=== PATIENT | female | born 1950 | race Asian ===

== ENCOUNTER 2020-04-10 11:22 | Inpatient (IN) | payer OTHER, MEDICAID ==
[~2020-04-10] VITALS: Ht 154.9 cm; Wt 52.6 kg
[2020-04-10 11:22] VITALS: BP_SYST 192
--- NOTE | 2020-04-10 11:22 | NUR ---
BROUGHT IN BY [facility], PLACED IN BED #6 AND TRIAGED. REPORT GIVEN TO MIGUEL ANGEL
--- NOTE | 2020-04-10 11:22 | NUR ---
Patient to ER bed 6 to gown for evaluation. Side rails up.
[2020-04-10] MEDS ORDERED: DOCU-144 PO (11:54)
[2020-04-10] MEDS ORDERED: ATEN-41 PO (11:54)
[2020-04-10] MEDS ORDERED: POLY17PO4 PO (11:54)
[2020-04-10] MEDS ORDERED: LEVE500T9 PO (11:54)
[2020-04-10] MEDS ORDERED: FERR-69 PO (11:54)
[2020-04-10] MEDS ORDERED: AMIO400T5 PO (11:54)
[2020-04-10] MEDS ORDERED: OMEP20CA11 PO (11:54)
--- NOTE | 2020-04-10 11:54 | NUR ---
Medication reconciliation completed with information provided by EMILE WORTHY. Any prior medication reconciliation on file was reviewed and corrected.
[2020-04-10 12:05] LABS: EOSINOPHILS # (AUTO) 0.1 K/uL (0.0-0.4); EOSINOPHILS % (AUTO) 0.9 % (0.0-4.0); HEMOGLOBIN 7.9 g/dL (12.0-16.0); LYMPHOCYTES # (AUTO) 2.1 K/uL (1.0-5.5)
[2020-04-10 12:12] LABS: BASOPHILS % (AUTO) 0.3 % (0.0-2.0); LYMPHOCYTES % (AUTO) 22.7 % (20.5-51.5); MEAN CORPUSCULAR HEMOGLOBIN 18 pg (27-31); MEAN CORPUSCULAR HGB CONC 31 % (32-36); MEAN CORPUSCULAR VOLUME 60 fL (79.0-98.0); MONOCYTES # (AUTO) 0.7 K/uL (0.0-1.0); MONOCYTES % (AUTO) 7.4 % (1.7-9.3); NEUTROPHILS # (AUTO) 6.3 K/uL (1.8-7.7); NEUTROPHILS % (AUTO) 68.7 % (40.0-70.0); PLATELET COUNT (AUTO) 321 K/uL (130-430); RED BLOOD CELL COUNT(AUTO) 4.32 MIL/uL (4.2-6.2); RED CELL DISTRIBUTION WIDTH 21.9 % (9.0-15.0); WHITE BLOOD COUNT (AUTO) 9.1 K/uL (4.8-10.8)
[2020-04-10 12:25] LABS: ALBUMIN 2.7 g/dL (3.4-4.8); CALCIUM 8.3 mg/dL (8.4-11.0); CREATININE 0.27 mg/dL (0.55-1.30); POTASSIUM 3.5 mmol/L (3.5-5.1); TOTAL BILIRUBIN 0.5 mg/dL (0.0-1.0)
[2020-04-10] MEDS ORDERED: hydrALAZINE HCL 20 MG/ML VIAL IVP ONE (12:30)
--- NOTE | 2020-04-10 12:41 | NUR ---
5mg of hydralazine IVP given at this time, per Dr Amaya only give 5 mg and monitoring the BP if BP still elevated give 5 mg more. primary nurse notified.
[2020-04-10 12:45] LABS: PROTHROMBIN TIME 10.2 SECS (9.5-12.5)
[2020-04-10] MEDS ORDERED: MAGNESIUM SULFATE 50 ML IV ONE (13:00)
--- NOTE | 2020-04-10 13:38 | NUR ---
Admit orders received from Dr. March.
--- NOTE | 2020-04-10 13:40 | NUR ---
Pt belongings list completed.
--- NOTE | 2020-04-10 13:40 | NUR ---
Called for tele bed. Unable to speak w/ CN for a bed assignment
--- NOTE | 2020-04-10 13:43 | NUR ---
Medication reconciliation completed with information provided by pt's medical record. Any prior medication reconciliation on file was reviewed and corrected.
[2020-04-10] MEDS ORDERED: ZOLPIDEM TARTRATE 5 MG TABLET PO PRN (14:15)
[2020-04-10] MEDS ORDERED: ACETAMINOPHEN 325 MG TABLET PO PRN (14:15)
[2020-04-10] MEDS ORDERED: MORPHINE SULFATE 10 MG/ML VIAL IVP PRN ×2 (14:15)
[2020-04-10] MEDS ORDERED: cloNIDine HCL 0.1 MG TABLET PO PRN (14:15)
[2020-04-10] MEDS ORDERED: MUPIROCIN 2% TOPICAL OINTMENT 22 GM NS PRN (14:15)
[2020-04-10] MEDS ORDERED: MAGNESIUM SULFATE 50 ML IV PRN (14:15)
[2020-04-10] MEDS ORDERED: POTASSIUM CHLORIDE 20 MEQ TAB.PRT.SR PO PRN (14:15)
[2020-04-10] MEDS ORDERED: ONDANSETRON HCL 4 MG/2 ML VIAL IVP PRN (14:15)
[2020-04-10] MEDS ORDERED: LORazepam 2 MG/ML VIAL IVP PRN (14:15)
[2020-04-10] MEDS ORDERED: DOCUSATE SODIUM 100 MG CAPSULE PO PRN (14:15)
--- NOTE | 2020-04-10 14:29 | NUR ---
called for a tele bed, second time. Unable to speak w/ Shana CN
--- NOTE | 2020-04-10 14:37 | NUR ---
Patient will be admitted to care of tele. Admitted to tele unit. Will go to room 107-b. Belongings list completed. Complete and up to date summary report printed. SBAR report to be given at bedside with opportunity for questions. Bedside report to be given
--- NOTE | 2020-04-10 15:07 | NUR ---
Admission Note Received patient from ER with diagnosis of Oriented to room, call light, pain management and safety.
--- NOTE | 2020-04-10 15:40 | NUR ---
CONSULTATION PAGED REASON FOR CONSULTATION:A-FIB AND QT PROLONGATION WAS CONSULT CALLED? PERSON WHO WAS NOTIFIED:REFUGIO CONSULTING PHYSICIAN:PEDRO BOSWELL VISUAL COORDINATOR SPECIALTY:CARDIO VISUAL COORDINATOR PHONE NUMBER:[phone] RE[facility]ING PHYSICIAN[facility]
[2020-04-10 15:44] VITALS: BP_SYST 155
[2020-04-10 15:56] VITALS: BP_SYST 155
--- NOTE | 2020-04-10 16:00 | NUR ---
Notes- Received pt in bed, awake non verbal. on room air tolerating well. afebrile. Sinus rythm on the monitor. has wound on the sacral area, picture taken. Bed alarm on. will monitor.
--- NOTE | 2020-04-10 16:18 | NUR ---
spoke to daughter and give updates.
--- NOTE | 2020-04-10 18:13 | NUR ---
Notes- In bed, awake. no acute distress noted. has incontinent of urine. change and repositioned.
[2020-04-10 19:24] LABS: TOTAL IRON BIND. CAPACITY 152 ug/dL (250-450)
--- NOTE | 2020-04-10 20:00 | NUR ---
Received in bed. Non-verbal. Presents in no distress. Incontinent of yellow urine. Cleaned and dry and protective measure maintain for comfort. Sacral dressing changed and intact. Will continue to monitor during shift.
[2020-04-10] MEDS: levETIRAcetam 500 MG TABLET PO SCH (21:27)
[2020-04-11] VITALS (8 sets, daily range): BP systolic 113–148
[2020-04-11 06:10] LABS: BASOPHILS % (AUTO) 0.3 % (0.0-2.0); EOSINOPHILS # (AUTO) 0.1 K/uL (0.0-0.4); EOSINOPHILS % (AUTO) 0.8 % (0.0-4.0); HEMATOCRIT 24.5 % (36-48); HEMOGLOBIN 7.6 g/dL (12.0-16.0); LYMPHOCYTES # (AUTO) 1.3 K/uL (1.0-5.5); LYMPHOCYTES % (AUTO) 16.6 % (20.5-51.5); MEAN CORPUSCULAR HEMOGLOBIN 19 pg (27-31); MEAN CORPUSCULAR HGB CONC 31 % (32-36); MEAN CORPUSCULAR VOLUME 60 fL (79.0-98.0); MONOCYTES # (AUTO) 0.7 K/uL (0.0-1.0); MONOCYTES % (AUTO) 8.8 % (1.7-9.3); NEUTROPHILS # (AUTO) 5.8 K/uL (1.8-7.7); NEUTROPHILS % (AUTO) 73.5 % (40.0-70.0); PLATELET COUNT (AUTO) 293 K/uL (130-430); RED BLOOD CELL COUNT(AUTO) 4.06 MIL/uL (4.2-6.2); WHITE BLOOD COUNT (AUTO) 7.9 K/uL (4.8-10.8)
[2020-04-11 06:21] LABS: CALCIUM 8.3 mg/dL (8.4-11.0); CREATININE 0.31 mg/dL (0.55-1.30); POTASSIUM 3.6 mmol/L (3.5-5.1)
--- NOTE | 2020-04-11 07:35 | NUR ---
OPENING NOTE Patient resting in the bed. No acute distress. Skin warm and dry to touch. SL intact to LAC, no redness, no swelling, patent. Safety measure maintained. Call light within reached. Bed locked in low position, side rails up, bed alarm on. Will continue to monitor.
[2020-04-11] MEDS: DOCUSATE SODIUM 100 MG CAPSULE PO SCH (09:48)
[2020-04-11] MEDS: ATENOLOL 25 MG TABLET(TENORMIN) PO SCH (09:49)
[2020-04-11] MEDS: AMIODARONE HCL 200 MG TABLET PO SCH (09:49)
[2020-04-11] MEDS: levETIRAcetam 500 MG TABLET PO SCH ×2 (09:49→20:40)
--- NOTE | 2020-04-11 09:57 | NUR ---
AM SCHEDULE MED GIVEN, TOLERATED WELL.
--- NOTE | 2020-04-11 10:24 | NUR ---
Nutrition Update Lavelle Scale 14 noted. Pt admitted for blood transfusion. Diet: Puree BMI: 21.2 kg/m2 RD to follow per nutrition care standards.
[2020-04-11] MEDS ORDERED: SOD FERRIC GLUC COMPLEX/SUC 125 MG in NS 100 ML IV ONE (12:00)
--- NOTE | 2020-04-11 12:22 | NUR ---
TELEPHONE CONSENT FOR BLOOD TRANSFUSION OBTAINED BY THE PATIENT'S DAUGHTER ALBINA STOLL VIA PHONE.
--- NOTE | 2020-04-11 14:15 | NUR ---
MRSA OF NARES=POSITIVE Called and reported to Ailyn Barron for MRSA of nares=positive. Dr. Lieberman with order of Bactroban ointment BID x 5 days. Order read back and okay to
--- NOTE | 2020-04-11 15:07 | NUR ---
Case mgt: S/W Sho Kwon, pt's daughter, at [phone] on phone-she speaks Yemeni well and indicates pt was at [facility] after stroke last June 2019 and transferred to [facility] on 2018 and has been there since that date. Sho wants her mom to return to [facility] when she is ready for discharge. Sho said her mom speaks Cantonese, but sometimes has problems with speech, but is mostly alert-has paraplegia and is able to feed herself--I gave Sho our case mgt ph# and explained we will call her once pt is stable for dc back to [facility]--Sho in agreement to this plan.
--- NOTE | 2020-04-11 16:38 | NUR ---
BT INITIATION: Consent signed per Sho Kwon (daughter) agreeing to administration of blood. Blood has been type and crossmatched. Blood sent from blood bank. Information on unit of blood checked against patient wristband at bedside by two nurses. All information matches. Patient or responsible alliance party informed of potential complications associated with blood transfusion. Informed of possible transfusion reaction symptoms. Aware of need to notify nurse at once of itching, shortness of breath, flushing, feeling of impending doom, or other symptoms not previously present. Vital signs taken within 5 minutes prior to initiation of transfusion. RN will remain with patient for first 15 minutes of transfusion at which time vital signs will be re-assessed.
--- NOTE | 2020-04-11 16:53 | NUR ---
15 MIN AFTER BLOOD TRANSFUSED Patient resting in the bed. No acute distress. Skin warm and dry to touch. No skin rash/itching noted. VS: T=97.3, P=78, R=18, ZW=993/80, O2 sat=95% RA. Safety measure maintained. Call light within reached. Bed locked in low position, side rails up, bed alarm on. Continue to monitor.
--- NOTE | 2020-04-11 17:05 | NUR ---
IV RE-INSERTION: Noted small leakage on the IV site. Restarted on left hand. Successful after 2 attempts. Resumed blood transfusion and regulated at 120ml/hr. Will monitor the S/S of infiltration.
--- NOTE | 2020-04-11 18:00 | NUR ---
ROUND Patient resting in the bed. No acute distress. IV intact to left hand, no redness, no swelling, no drainage, continue on blood transfusion, infusing well. No skin rash noted. Safety measure maintained. Call light within reached. Bed locked in low position, side rails up, bed alarm on. Continue to monitor.
--- NOTE | 2020-04-11 19:10 | NUR ---
BLOOD TRANSFUSED COMPLETED/CLOSING NOTE Patient resting in the bed. No acute distress. VS: T=97.4, P=77, R=18, RD=012/90, O2 sat=95%RA. No skin rash/itching noted. IV intact, no redness, no swelling, patent. Safety measure maintained. Call light within reached. Bed locked in low position, side rails up, bed alarm on. On contact isolation. All needs met. No seizure activity noted. Will endorse to night nurse.
--- NOTE | 2020-04-11 19:30 | NUR ---
Opening Notes patient is resting in bed. No signs of distress noted, breathing is even and unlabored. Patient is on room air and tolerating well. 20G to left hand is saline locked at this time. No other needs. Bed is locked in the lowest position with call light within reach. Side rails up X3. Bed alarm is on.
[2020-04-11] MEDS: MUPIROCIN 2% TOPICAL OINTMENT 22 GM NS SCH (20:40)
--- NOTE | 2020-04-11 20:40 | NUR ---
Medications Administered scheduled medications crushed in apple sauce. Patient tolerated well. Educated patient on action and side effects. Cleaned and repositioned patient at this time, dressing to sacrum is clean, dry and intact. No other needs at this time. Bed is locked in the lowest position with call light within reach. Side rails up X3. Bed alarm is on.
--- NOTE | 2020-04-11 22:47 | NUR ---
RN Rounds Patient is resting in bed with eyes closed. No signs of distress noted. breathing is even and unlabored. Repositioned patient at this time, Patient tolerated well. Bed is locked in the lowest position with call light within reach. Side rails up X3. Bed alarm is on.
--- NOTE | 2020-04-12 00:47 | NUR ---
RN Rounds Patient is resting in bed with eyes closed. No signs of distress noted. breathing is even and unlabored. Repositioned and cleaned patient at this time, Patient tolerated well. Bed is locked in the lowest position with call light within reach. Side rails up X3. Bed alarm is on.
[2020-04-12 01:11] VITALS: BP_SYST 153
[2020-04-12 06:37] LABS: BASOPHILS % (AUTO) 0.3 % (0.0-2.0); EOSINOPHILS % (AUTO) 0.3 % (0.0-4.0); HEMATOCRIT 28.3 % (36-48); HEMOGLOBIN 8.9 g/dL (12.0-16.0); LYMPHOCYTES # (AUTO) 1.3 K/uL (1.0-5.5); LYMPHOCYTES % (AUTO) 14.3 % (20.5-51.5); MEAN CORPUSCULAR HEMOGLOBIN 20 pg (27-31); MEAN CORPUSCULAR HGB CONC 32 % (32-36); MEAN CORPUSCULAR VOLUME 63 fL (79.0-98.0); MONOCYTES # (AUTO) 0.8 K/uL (0.0-1.0); MONOCYTES % (AUTO) 9.1 % (1.7-9.3); PLATELET COUNT (AUTO) 278 K/uL (130-430); RED BLOOD CELL COUNT(AUTO) 4.51 MIL/uL (4.2-6.2); WHITE BLOOD COUNT (AUTO) 9.2 K/uL (4.8-10.8)
[2020-04-12 06:40] LABS: CALCIUM 8.2 mg/dL (8.4-11.0); CREATININE 0.35 mg/dL (0.55-1.30); POTASSIUM 3.8 mmol/L (3.5-5.1)
--- NOTE | 2020-04-12 07:28 | NUR ---
OPENING NOTE Patient resting in the bed. No acute distress. Skin warm and dry to touch. SL intact to left hand, no redness, no swelling, patent. On contact isolation. Safety measure maintained. Call light within reached. Bed locked in low position, side rails up, bed alarm on. Will continue to monitor.
--- NOTE | 2020-04-12 07:36 | NUR ---
Closing Notes patient is resting in bed. No signs of distress noted, breathing is even and unlabored. Patient is on room air and tolerating well. 20G to left hand is saline locked at this time. All needs were met throughout shift. Bed is locked in the lowest position with call light within reach. Side rails up X3. Bed alarm is on. Will endorse care to dayshift RN
[2020-04-12 08:12] VITALS: BP_SYST 144
[2020-04-12] MEDS: levETIRAcetam 500 MG TABLET PO SCH ×2 (09:49→21:34)
[2020-04-12] MEDS: DOCUSATE SODIUM 100 MG CAPSULE PO SCH (09:49)
[2020-04-12] MEDS: ATENOLOL 25 MG TABLET(TENORMIN) PO SCH (09:50)
[2020-04-12] MEDS: AMIODARONE HCL 200 MG TABLET PO SCH (09:51)
--- NOTE | 2020-04-12 09:52 | NUR ---
AM SCHEDULE MED GIVEN, TOLERATED WELL.
[2020-04-12] MEDS: MUPIROCIN 2% TOPICAL OINTMENT 22 GM NS SCH ×2 (09:56→21:34)
--- NOTE | 2020-04-12 11:02 | NUR ---
ROUND Patient resting in the bed with eye closed. No acute distress. Safety measure maintained. Call light within reached. Bed locked in low position, side rails up, bed alarm on. Contact isolation maintained. Continue to monitor.
[2020-04-12 12:40] VITALS: BP_SYST 118
--- NOTE | 2020-04-12 12:45 | NUR ---
DEZ LEON Seen and examined by Dr. Lieberman. Reported to Dr. Lieberman, the urine of the patient cloudy with smell. Dr. Lieberman with the order of UA. Told Dr. Lieberman, the patient's daughter Cher Berkowitz wanted to talk to her, phone .
--- NOTE | 2020-04-12 14:07 | NUR ---
URINE SPECIMEN SENT TO LAB Urine sample obtained via straight cath, sterile technique performed. Patient tolerated procedure well. No s/s of pain. Safety measure maintained. Call light within reached. Bed locked in low position, side rails up, bed alarm on. Contact isolation maintained. Continue to monitor.
[2020-04-12 14:15] LABS: BILIRUBIN,URINE NEGATIVE (NEGATIVE); BLOOD, URINE 2+ (NEGATIVE); CLARITY/URINE CLOUDY (CLEAR); COLOR,URINE YELLOW (YELLOW); GLUCOSE,URINE NEGATIVE (NEGATIVE); KETONES,URINE NEGATIVE (NEGATIVE); LEUKOCYTE ESTERASE ,URINE 3+ (NEGATIVE); NITRITE, URINE NEGATIVE (NEGATIVE); PROTEIN URINE NEGATIVE (NEGATIVE)
[2020-04-12 14:41] LABS: BACTERIA,URINE MANY /HPF (None Seen); RBC,URINE 0-3 /HPF (0-3); WBC,URINE 50-80 /HPF (0-3)
[2020-04-12 14:42] LABS: MUCUS,URINE None Seen /LPF (None Seen); URINE AMORPHOUS PHOSPHATES 2+ /HPF (None Seen)
--- NOTE | 2020-04-12 15:25 | NUR ---
LEFT LEG DVT POSITIVE Called and reported to Ailyn Barron for left leg DVT positive. Per Dr. Lieberman she will check the result from the computer and will order something.
[2020-04-12] MEDS ORDERED: RIVAROXABAN 15 MG TABLET PO ONE (16:00)
[2020-04-12 16:08] VITALS: BP_SYST 126
--- NOTE | 2020-04-12 16:36 | NUR ---
UA POSITIVE Called and reported to Ailyn Barron, UA positive result and the patient not on any antibiotic, C & S is pending. Dr. Lieberman stated "I will check for it. I cancelled Xarelto due to the patient cannot take anticoagulant". Told Dr. Lieberman I already gave the initial dose. Dr. Lieberman stated "That's fine".
[2020-04-12] MEDS: cefTRIAXone 1 GM in D5W 50 ML IV SCH (17:10)
--- NOTE | 2020-04-12 17:20 | NUR ---
CONSULTATION PAGED REASON FOR CONSULTATION:LEFT LEG DVT, UNABLE TO ANTICOAGULATE WAS CONSULT CALLED?Y PERSON WHO WAS NOTIFIED:KONSTANTIN CONSULTING PHYSICIAN:VENKATA WARD CUT TO LENGTH OPERATOR SPECIALTY:SURGEON CUT TO LENGTH OPERATOR PHONE NUMBER:[phone] REQUESTING PHYSICIAN:DEZ BEYER
--- NOTE | 2020-04-12 18:37 | NUR ---
CLOSING NOTE Patient resting in the bed. No acute distress. Skin warm and dry to touch. SL intact to left hand, no redness, no swelling, patent. All needs met. No seizure activity noted during shift. Continue isolation maintained. Call light within reached. Bed locked in low position, padded side rails up, bed alarm on. Will endorse to night nurse.
[2020-04-12 20:00] VITALS: BP_SYST 129
[2020-04-12 23:00] VITALS: BP_SYST 170
[2020-04-13] VITALS: BP_SYST 170
[2020-04-13 05:26] LABS: LYMPHOCYTES # (AUTO) 1.2 K/uL (1.0-5.5)
[2020-04-13 05:30] LABS: CALCIUM 8.4 mg/dL (8.4-11.0); CREATININE 0.32 mg/dL (0.55-1.30); POTASSIUM 3.8 mmol/L (3.5-5.1)
[2020-04-13 05:40] LABS: BASOPHILS % (AUTO) 0.2 % (0.0-2.0); EOSINOPHILS % (AUTO) 0.3 % (0.0-4.0); HEMATOCRIT 26.4 % (36-48); HEMOGLOBIN 8.4 g/dL (12.0-16.0); LYMPHOCYTES % (AUTO) 12.1 % (20.5-51.5); MEAN CORPUSCULAR HEMOGLOBIN 20 pg (27-31); MEAN CORPUSCULAR HGB CONC 32 % (32-36); MEAN CORPUSCULAR VOLUME 63 fL (79.0-98.0); MONOCYTES # (AUTO) 0.9 K/uL (0.0-1.0); MONOCYTES % (AUTO) 9.2 % (1.7-9.3); NEUTROPHILS # (AUTO) 7.4 K/uL (1.8-7.7); NEUTROPHILS % (AUTO) 78.2 % (40.0-70.0); PLATELET COUNT (AUTO) 290 K/uL (130-430); RED BLOOD CELL COUNT(AUTO) 4.18 MIL/uL (4.2-6.2); RED CELL DISTRIBUTION WIDTH 24.8 % (9.0-15.0); WHITE BLOOD COUNT (AUTO) 9.5 K/uL (4.8-10.8)
[2020-04-13 08:00] VITALS: BP_SYST 123
--- NOTE | 2020-04-13 08:00 | NUR ---
initial notes rec patient asleep but arousable to stimuli. ivf infusing well. no infiltration noted. resp easy and unlabored. no osb noted. bed to the lowest position and side rails up and locked. call light within reached . will continue to monitor patient.
--- NOTE | 2020-04-13 08:42 | NUR ---
Neuro consult called: for Dr. Portillo, regarding advisement on anticoagulation, ordered by Dr. March Spoke with Dr. Portillo on phone. He is aware.
[2020-04-13] MEDS ORDERED: RIVAROXABAN 15 MG TABLET PO SCH (09:00)
--- NOTE | 2020-04-13 10:00 | NUR ---
rounds seen by dr malcolm .
[2020-04-13] MEDS: levETIRAcetam 500 MG TABLET PO SCH ×2 (10:36→21:17)
[2020-04-13] MEDS: DOCUSATE SODIUM 100 MG CAPSULE PO SCH (10:36)
[2020-04-13] MEDS: AMIODARONE HCL 200 MG TABLET PO SCH (10:37)
[2020-04-13] MEDS: ATENOLOL 25 MG TABLET(TENORMIN) PO SCH (10:38)
[2020-04-13 12:00] VITALS: BP_SYST 124
--- NOTE | 2020-04-13 12:40 | NUR ---
Dietitian Recommendations *Continue pureed diet per MD. ONS Ensure Enlive comes standard w/ diet and provides 1050 kcal and 60gm protein daily. *Recommend: appetite stimulant. ISA, RD
--- NOTE | 2020-04-13 14:00 | NUR ---
rounds pt was picked up for ct head via erney. no osb noted.
[2020-04-13 16:32] VITALS: BP_SYST 128
[2020-04-13] MEDS: cefTRIAXone 1 GM in D5W 50 ML IV SCH (17:02)
[2020-04-13] MEDS: MUPIROCIN 2% TOPICAL OINTMENT 22 GM NS SCH ×2 (17:03→21:17)
--- NOTE | 2020-04-13 18:30 | NUR ---
closing notes pt resting comoftrably .ivl on the l forearm in place. denies pain. resting comfortably at this time. bed to the lowest position and side rails up and locked. call light withn reached.
--- NOTE | 2020-04-13 19:25 | NUR ---
RECEIVED REPORT FROM MICHI TINOCO. Pt ASLEEP, EYES OPENED TO THE SOUND OF OUR VOICES, PT IS NON-VERBAL, AND CALM, NAD NOTED.
[2020-04-13 19:54] VITALS: BP_SYST 119
--- NOTE | 2020-04-13 20:25 | NUR ---
FORESTRY INSTRUCTOR CALLED TO REGULATE Pt'S ROOM TEMP FOR Pt'S COMFORT, RE: VERY COLD ROOM.
--- NOTE | 2020-04-13 22:00 | NUR ---
MED PASS DONE. PM CARE DONE- KENIA CARE, PARTIAL BED BATH AND LINEN CHANGE DONE, Pt TOLERATED WELL, REPOSITIONED, COMFORT MEASURES W/ USE OF WARM BLANKET. AT PRESENT PT RESTING WITH EYES CLOSED. NAD NOTED.
[2020-04-13 23:27] VITALS: BP_SYST 106
--- NOTE | 2020-04-14 01:34 | NUR ---
ON ROUNDS Pt ASLEEP NAD NOTED. ROOM TEMP COMFORTABLY COOL. Pt MADE COMFORTABLE, NAD NOTED.
[2020-04-14 04:00] VITALS: BP_SYST 110
--- NOTE | 2020-04-14 04:40 | NUR ---
[facility]IA CARE, REPOSITIONED, STOOL FOR OCCULT BLOOD COLLECTED AND SENT TO LAB AT 0430. PT TOLERATED WELL, NAD NOTED. ASLEEP AT PRESENT
--- NOTE | 2020-04-14 07:15 | NUR ---
Pt ASLEEP, EASY AROUSAL WHEN AT BEDSIDE. CALM, NAD NOTED. REPORT TO AM RN EARNEST.
[2020-04-14 07:27] LABS: BASOPHILS % (AUTO) 0.5 % (0.0-2.0); EOSINOPHILS % (AUTO) 0.3 % (0.0-4.0); HEMATOCRIT 26.8 % (36-48); HEMOGLOBIN 8.2 g/dL (12.0-16.0); LYMPHOCYTES # (AUTO) 1.3 K/uL (1.0-5.5); LYMPHOCYTES % (AUTO) 17.7 % (20.5-51.5); MEAN CORPUSCULAR HEMOGLOBIN 19 pg (27-31); MEAN CORPUSCULAR HGB CONC 31 % (32-36); MEAN CORPUSCULAR VOLUME 63 fL (79.0-98.0); MONOCYTES # (AUTO) 0.7 K/uL (0.0-1.0); MONOCYTES % (AUTO) 10.1 % (1.7-9.3); NEUTROPHILS # (AUTO) 5.2 K/uL (1.8-7.7); NEUTROPHILS % (AUTO) 71.4 % (40.0-70.0); PLATELET COUNT (AUTO) 309 K/uL (130-430); RED BLOOD CELL COUNT(AUTO) 4.27 MIL/uL (4.2-6.2); WHITE BLOOD COUNT (AUTO) 7.3 K/uL (4.8-10.8)
[2020-04-14 08:00] VITALS: BP_SYST 114
--- NOTE | 2020-04-14 08:00 | NUR ---
initial notes rec patient asleep but arousable to stimuli but confused. ivl on the l forearm intact. no infiltration noted. reap easy and unlabored. bed to the lowest position and side rails up and locked. call light within reached. on contact isolation for mrsa nares. will continue to monitor patient.
[2020-04-14 08:08] LABS: CALCIUM 8.3 mg/dL (8.4-11.0); CREATININE 0.34 mg/dL (0.55-1.30); POTASSIUM 3.9 mmol/L (3.5-5.1)
[2020-04-14 08:14] LABS: RED CELL DISTRIBUTION WIDTH 24.7 % (9.0-15.0)
[2020-04-14] MEDS ORDERED: APIXABAN 2.5 MG TABLET PO SCH (09:00)
[2020-04-14] MEDS: AMIODARONE HCL 200 MG TABLET PO SCH (09:52)
[2020-04-14] MEDS: MUPIROCIN 2% TOPICAL OINTMENT 22 GM NS SCH (09:53)
[2020-04-14] MEDS: levETIRAcetam 500 MG TABLET PO SCH (09:53)
[2020-04-14] MEDS: ATENOLOL 25 MG TABLET(TENORMIN) PO SCH (09:53)
--- NOTE | 2020-04-14 09:57 | NUR ---
Discharge Planning: DCP faxed pt referral to [facility] (f [phone] p [phone]) DCP to follow up. Addendum: 04/14/20 at 1211 by Margot Ryan DP DCP followed up with Ravi at [facility] (f [phone] p [phone]) fax is not working DCP resent to [place] given [phone]. DCP to follow up. Addendum: 04/14/20 at 1434 by Margot Ryan DP DCP received room from [facility] (f [phone] p [phone]) Rm 28A, transportation arranged with [facility] ([phone]) 5:00pm P/U. Nurse made aware patient packet taken to nurse station.
--- NOTE | 2020-04-14 10:30 | NUR ---
rounds due meds were given and jonathan well with apple sauce. resting comfortably . turned repositioned as follows.
--- NOTE | 2020-04-14 12:00 | NUR ---
rounds asleep at intervals and with confusion noted when awake. resting comfortably.
--- NOTE | 2020-04-14 12:15 | NUR ---
WOUND EVALUATION: Wound Consult received from Dr. March. Thank you, Dr. March, for the consult. Patient received in a [place] Bed with an IsoFlex EDMOND mattress, awake, alert, non-verbal. Patient is unable to turn in bed independently. Lavelle Score is a 12. Past Medical History: Atrial Fibrillation, Subarachnoid Hemorrhage with Intracranial Coil Placement, Hypertension, GERD, on seizure prophylaxis with Keppra, medical non-compliance (inconsistent medication compliance in the past). Recent Labs: BUN 17, creatinine 0.34, GFR 204, albumin 2.7, calcium 8.3, PTT 22.0. Microbiology: MRSA screen results positive. Urine culture results in progress. Stool occult blood results negative. Intrinsic factors that delay wound healing: Hypoalbuminemia. Extrinsic factors that delay wound healing: Decreased mobility. Wound Assessment: 1. Coccygeal area: Unstageable pressure ulcer, present on admission. Wound bed has 100% yellow slough. No odor, no drainage. Periwound macerated, intact. Surrounding tissue has dark discoloration. no tunneling or undermining. Wound measures 3.0 cm x 1.0 cm x 0.5 cm. Recommend: Cleanse wound with normal saline. Apply moisture barrier cream to giuseppe-wound. Apply Venelex ointment to wound bed. Cover with foam dressing. Perform wound care daily, and as needed for dressing soiling or dislodgement. 2. Left Heel: Blanchable redness. 3. Right Heel: Blanchable redness. Recommend: Elevate, offload and float bilateral heels with one pillow lengthwise under each extremity at all times. Also recommend: Reposition patient every 2 hours with pillow support and off-load pressure areas with pillows for pressure re-distribution. Offload, elevate and float bilateral heels with pillows. Perform skin care and monitor skin integrity Q shift. Use moisture barrier cream on buttocks and other moisture susceptible areas QID and as needed for soiling. Place patient on a low air-loss mattress. Recommend surgical consult.
[2020-04-14 12:21] VITALS: BP_SYST 117
--- NOTE | 2020-04-14 13:58 | NUR ---
rounds asleep at this time. resting comfortably.
[2020-04-14] MEDS ORDERED: DOCUSATE SODIUM 100 MG/10 ML UDC PO PRN (14:13)
[2020-04-14] MEDS ORDERED: DOCUSATE SODIUM 100 MG/10 ML UDC PO SCH (14:13)
[2020-04-14] MEDS ORDERED: COMMUNICATION ORDER XX ONE (14:15)
--- NOTE | 2020-04-14 15:00 | NUR ---
rounds daughter called and informed her that patient is going back to [facility]. updated re patient's condition. no sob noted.
[2020-04-14 16:15] VITALS: BP_SYST 122
[2020-04-14 16:29] VITALS: BP_SYST 122
--- NOTE | 2020-04-14 17:30 | NUR ---
closing notes pt was transferred to [facility] via ambulance. report given to margaret white. pt id band was changed. iv lock was removed. pic was taken on the coccyx area and tx area. no sob noted. stable and needs attended.
[2020-04-15] MEDS ORDERED: BALSAM PERU/CASTOR OIL 60 GM OINT...G. TP SCH (09:00)
== END 2020-04-14 17:30 | DRG 299 ==
LOC: SED 11:22 → STU 13:33
PROVIDERS: ADMIT General Practice; ATTEND General Practice
PROC: 30233N1 Transfusion of Nonautologous Red Blood Cells into Peripheral Vein, Percutaneous Approach (ICD-10-PCS; principal; 2020-04-11)
DX: I82.412 Acute embolism and thrombosis of left femoral vein (principal); E43 Unspecified severe protein-calorie malnutrition; N39.0 Urinary tract infection, site not specified; E87.1 Hypo-osmolality and hyponatremia; D50.9 Iron deficiency anemia, unspecified; I82.432 Acute embolism and thrombosis of left popliteal vein; I48.0 Paroxysmal atrial fibrillation; I16.0 Hypertensive urgency; G40.909 Epilepsy, unspecified, not intractable, without status epilepticus; I10 Essential (primary) hypertension; K21.9 Gastro-esophageal reflux disease without esophagitis; D56.3 Thalassemia minor; E88.09 Other disorders of plasma-protein metabolism, not elsewhere classified; Z83.2 Family history of diseases of the blood and blood-forming organs and certain disorders involving the immune mechanism; Z86.73 Personal history of transient ischemic attack (TIA), and cerebral infarction without residual deficits; Z68.21 Body mass index [BMI] 21.0-21.9, adult; Z74.01 Bed confinement status
CPT/HCPCS: 36415; 36430; 70450-TC; 71045; 80048; 80053; 81000-TC; 82272; 82728; 83036; 83540-TC; 83550-TC; 83735-TC; 85025; 85610-TC; 85730-TC; 86886; 86900; 86901; 86920; 87081; 87086; 87186-TC; 93005; 93306; 93971; 99285; G0378; J0360; J0696; J2916; J7050; J7060; P9021

== ENCOUNTER 2020-05-05 12:57 | Outpatient (CLI) | payer OTHER, MEDICAID ==
[~2020-05-05 12:57] MED LIST: AMIO400T5 PO; ATEN-41 PO; DOCU-144 PO; FERR-69 PO; LEVE500T9 PO; OMEP20CA11 PO; POLY17PO4 PO
== END 2020-05-05 18:19 | disposition home or self-care (01) ==
LOC: SCT 12:57
PROVIDERS: ATTEND Family Medicine
DX: I51.7 Cardiomegaly (principal); R51 Headache
CPT/HCPCS: 70450-TC

== ENCOUNTER 2021-05-25 12:25 | Inpatient (IN) | payer OTHER, MEDICAID, SELFPAY ==
[~2021-05-25] VITALS: Ht 162.6 cm; Wt 55.8 kg
[~2021-05-25 12:25] MED LIST changes: +APIX2.5T PO; +ASCO500C18 PO; +GABA-331 PO; +LEVO750T45 PO; +MULT-1100 PO; -OMEP20CA11 PO; +OMEP20CA15 PO; +ROPI0.5T4 PO
[2021-05-25 12:28] VITALS: BP_SYST 99
--- NOTE | 2021-05-25 12:30 | NUR ---
Patient to ER bed 7 to gown for evaluation. Side rails up.
--- NOTE | 2021-05-25 12:35 | NUR ---
PT ARRIVES FROM [facility] W/ WITH DECREASING O2 SAT 78% ON RA PER EMS. PER EMS PT WAS VOMITING WHEN HER O2 SAT DECREASED. PT IS NON-VERBAL. OPENS HER EYES AND IS ABLE TO TRACK MOVEMENT. CURRENT O2 SAT IS 100% ON A NON-REBREATHER.
--- NOTE | 2021-05-25 12:39 | NUR ---
PER PT'S MIRACLE PT IS FULL CODE
--- NOTE | 2021-05-25 12:42 | NUR ---
ER at bedside examining patient.
[2021-05-25] MEDS ORDERED: NACL 0.9% 1,000 ML IV ONE ×2 (12:45→15:00)
--- NOTE | 2021-05-25 12:55 | NUR ---
# 16 FR Parada catheter with use of sterile technique. Immediate return of 50 cc CLOUDY, YELLOW urine noted. Bedside drainage bag placed below level of bladder. Urine sample collected and sent to lab. Pt tolerated procedure WELL. Patient arrived with parada in place, changed due to standard of practice prior to admission. Patient unable to toilet self.
[2021-05-25 13:09] LABS: BILIRUBIN,URINE NEGATIVE (NEGATIVE); BLOOD, URINE 3+ (NEGATIVE); CLARITY/URINE CLOUDY (CLEAR); COLOR,URINE YELLOW (YELLOW); GLUCOSE,URINE NEGATIVE (NEGATIVE); KETONES,URINE NEGATIVE (NEGATIVE); LEUKOCYTE ESTERASE ,URINE 3+ (NEGATIVE); NITRITE, URINE POSITIVE (NEGATIVE); PH,URINE 7.5 (5.0-8.0); PROTEIN URINE TRACE (NEGATIVE)
[2021-05-25 13:11] LABS: BASOPHILS % (AUTO) 0.1 % (0.0-2.0); EOSINOPHILS % (AUTO) 0.3 % (0.0-4.0); HEMATOCRIT 31.2 % (36-48); HEMOGLOBIN 9.9 g/dL (12.0-16.0); LYMPHOCYTES # (AUTO) 0.3 K/uL (1.0-5.5); MEAN CORPUSCULAR HEMOGLOBIN 20 pg (27-31); MEAN CORPUSCULAR HGB CONC 32 % (32-36); MEAN CORPUSCULAR VOLUME 63 fL (79.0-98.0); MONOCYTES # (AUTO) 0.8 K/uL (0.0-1.0); NEUTROPHILS # (AUTO) 6.8 K/uL (1.8-7.7); NEUTROPHILS % (AUTO) 85.6 % (40.0-70.0); PLATELET COUNT (AUTO) 154 K/uL (130-430); RED BLOOD CELL COUNT(AUTO) 4.98 MIL/uL (4.2-6.2); RED CELL DISTRIBUTION WIDTH 17.5 % (9.0-15.0); WHITE BLOOD COUNT (AUTO) 7.9 K/uL (4.8-10.8)
[2021-05-25] MEDS ORDERED: ACETAMINOPHEN 650 MG SUPP.RECT RC ONE (13:15)
[2021-05-25 13:16] LABS: INR 1.1 (0.8-1.2); PROTHROMBIN TIME 11.1 SECS (9.5-12.5)
[2021-05-25 13:18] LABS: ALBUMIN 3.2 g/dL (3.4-4.8); CALCIUM 8.5 mg/dL (8.4-11.0); CREATININE 0.65 mg/dL (0.55-1.30); POTASSIUM 3.8 mmol/L (3.5-5.1); TOTAL BILIRUBIN 0.8 mg/dL (0.0-1.0)
[2021-05-25 13:30] LABS: C-REACTIVE PROTEIN QUANT 4.1 mg/dL (0-0.5)
[2021-05-25 13:30] LABS: BACTERIA,URINE MODERATE /HPF (None Seen); RBC,URINE 20-50 /HPF (0-3); URINE AMORPHOUS PHOSPHATES 2+ /HPF (None Seen); WBC,URINE 20-50 /HPF (0-3)
--- NOTE | 2021-05-25 13:55 | NUR ---
CURRENT O2 SAT IS 94% ON 4L.
[2021-05-25] MEDS ORDERED: FER300L GT (14:09)
[2021-05-25] MEDS ORDERED: DOCU-144 GT (14:09)
[2021-05-25] MEDS ORDERED: METO50TA16 GT (14:09)
[2021-05-25] MEDS ORDERED: MULT1CAP34 GT (14:09)
[2021-05-25] MEDS ORDERED: ACET325T53 GT (14:09)
[2021-05-25] MEDS ORDERED: ARGI1POW17 GT (14:09)
[2021-05-25] MEDS ORDERED: GABA-531 GT (14:09)
[2021-05-25] MEDS ORDERED: PERIDEX PO (14:09)
[2021-05-25] MEDS ORDERED: ACET325T53 PR (14:09)
[2021-05-25] MEDS ORDERED: AMLO5TAB4 PR (14:09)
[2021-05-25] MEDS ORDERED: ASCO500C18 GT (14:13)
[2021-05-25] MEDS ORDERED: ROPI0.5T4 GT (14:13)
--- NOTE | 2021-05-25 14:13 | NUR ---
Medication reconciliation completed with information provided by FACILITY. Any prior medication reconciliation on file was reviewed and corrected.
--- NOTE | 2021-05-25 15:27 | NUR ---
CURRENTLY INFUSING LEVAQUIN PER ORDER
--- NOTE | 2021-05-25 16:17 | NUR ---
Patient will be admitted to care of DR. SCOTT. Admitted to TELE unit. Will go to room 106-A. Belongings list completed. Complete and up to date summary report printed. SBAR report to be given at bedside with opportunity for questions.
[2021-05-25 16:20] VITALS: BP_SYST 93
--- NOTE | 2021-05-25 16:20 | NUR ---
ADMISSION NOTE Received patient from ER via barbara, received report from JEYSON HORNE. Patient admitted with diagnosis of URINARY TRACT INFECTION AND PNA.
--- NOTE | 2021-05-25 17:13 | NUR ---
TUBE FEEDING SPOKE TO DR. SCOTT ABOUT DIET ORDER. SAID TO CONTINUE SAME FEEDING AT [facility]IOR [facility]ARE. CALLED EMILE WORTHY. TUBE FEEDINGS ARE JEVITY 1.5 @ 60 ML/HR FOR 20 HOURS. NOTED AND CARRIED OUT.
[2021-05-25] MEDS ORDERED: LORazepam 2 MG/ML VIAL IVP PRN (18:00)
[2021-05-25] MEDS ORDERED: MORPHINE 2 MG/ML INJ. SYRINGE IVP PRN (18:00)
[2021-05-25] MEDS ORDERED: ZOLPIDEM TARTRATE 5 MG TABLET PO PRN (18:00)
[2021-05-25] MEDS ORDERED: MAGNESIUM SULFATE 50 ML IV PRN (18:00)
[2021-05-25] MEDS ORDERED: POTASSIUM CHLORIDE 20 MEQ TAB.PRT.SR PO PRN (18:00)
[2021-05-25] MEDS ORDERED: DOCUSATE SODIUM 100 MG CAPSULE PO PRN (18:00)
[2021-05-25] MEDS ORDERED: MUPIROCIN 2% TOPICAL OINTMENT 22 GM NS PRN (18:00)
[2021-05-25] MEDS ORDERED: ACETAMINOPHEN 325 MG TABLET PO PRN (18:00)
[2021-05-25] MEDS ORDERED: NACL 0.9% 1,000 ML IV SCH (18:00)
[2021-05-25] MEDS: PIPERACILLIN/TAZO 3.375/DEX-IS 50 ML IV SCH ×2 (18:18→23:01)
[2021-05-25] MEDS: NACL 0.9% 1,000 ML IV SCH (18:18)
[2021-05-25 20:00] VITALS: BP_SYST 95
--- NOTE | 2021-05-25 20:40 | NUR ---
CONSULT: CONSULT CALLED FOR DR. AKINS I SPOKE WITH HAILEE GARETH REASON FOR CONSULT: SEPSIS REQUESTING CONSULT: DR. SCOTT [address] PATROL OFFICER PHONE NUMBER: [phone]
[2021-05-25] MEDS: levETIRAcetam 500 MG TABLET PO SCH (21:53)
[2021-05-25] MEDS: GABAPENTIN 300 MG CAPSULE GT SCH (21:53)
[2021-05-25] MEDS: POLYETHYLENE GLYCOL 3350, 17 GM/ POWD.PACK PO SCH (21:53)
[2021-05-26 01:45] VITALS: BP_SYST 99
[2021-05-26] MEDS: PIPERACILLIN/TAZO 3.375/DEX-IS 50 ML IV SCH (05:23)
[2021-05-26] MEDS: NACL 0.9% 1,000 ML IV SCH ×2 (05:23→14:34)
[2021-05-26 06:32] LABS: BASOPHILS % (AUTO) 0.3 % (0.0-2.0); EOSINOPHILS # (AUTO) 0.1 K/uL (0.0-0.4); EOSINOPHILS % (AUTO) 0.8 % (0.0-4.0); HEMOGLOBIN 8.1 g/dL (12.0-16.0); LYMPHOCYTES # (AUTO) 0.6 K/uL (1.0-5.5); LYMPHOCYTES % (AUTO) 8.6 % (20.5-51.5); MEAN CORPUSCULAR HEMOGLOBIN 19 pg (27-31); MEAN CORPUSCULAR HGB CONC 31 % (32-36); MEAN CORPUSCULAR VOLUME 62 fL (79.0-98.0); MONOCYTES # (AUTO) 0.6 K/uL (0.0-1.0); MONOCYTES % (AUTO) 9.7 % (1.7-9.3); NEUTROPHILS # (AUTO) 5.3 K/uL (1.8-7.7); NEUTROPHILS % (AUTO) 80.6 % (40.0-70.0); PLATELET COUNT (AUTO) 145 K/uL (130-430); RED BLOOD CELL COUNT(AUTO) 4.18 MIL/uL (4.2-6.2); RED CELL DISTRIBUTION WIDTH 17.2 % (9.0-15.0); WHITE BLOOD COUNT (AUTO) 6.6 K/uL (4.8-10.8)
[2021-05-26 06:51] LABS: CREATININE 0.39 mg/dL (0.55-1.30); POTASSIUM 3.6 mmol/L (3.5-5.1)
--- NOTE | 2021-05-26 07:01 | NUR ---
Nutrition Update Lavelle Scale 16 noted. Pt admitted for UTI, Pnuemonia Diet: Jevity 1.5 at 60ml/hr, FWF 100ml via GT BMI: 21.3 kg/m2 RD to follow per nutrition care standards.
--- NOTE | 2021-05-26 07:46 | NUR ---
OPENING NOTE PATIENT IS RESTING IN BED. ON 4 L NASAL CANNULA AND TOLERATING WELL WITH NO SIGNS OF SHORTNESS OF BREATH NOTED. IV IS PATENT, INFUSING FLUIDS ORDERED. LUONG CATHETER ATTACHED, DRAINING BY GRAVITY. G TUBE IN PLACE ADMINISTERING FEEDINGS AT 60 ML/ HR. BED LOCKED AND IN LOWEST POSITION. CALL LIGHT WITHIN REACH. BED ALARM ON. SAFETY, FALL, ASPIRATION, AND SEIZURE PRECAUTIONS IN PLACE. WILL CONTINUE TO MONITOR.
[2021-05-26 08:00] VITALS: BP_SYST 101
[2021-05-26] MEDS ORDERED: ATENOLOL 25 MG TABLET(TENORMIN) PO SCH (09:00)
[2021-05-26] MEDS ORDERED: DOCUSATE SODIUM 100 MG CAPSULE PO SCH (09:00)
[2021-05-26] MEDS ORDERED: AMIODARONE HCL 200 MG TABLET PO SCH (09:00)
--- NOTE | 2021-05-26 09:00 | NUR ---
BP BLOOD PRESSURE LOW. 100/ 63. DR. SCOTT MADE AWARE. HELD BP MEDICATIONS THIS AM. WILL MONITOR.
[2021-05-26] MEDS: levETIRAcetam 500 MG TABLET PO SCH ×2 (09:16→20:45)
[2021-05-26] MEDS: GABAPENTIN 300 MG CAPSULE GT SCH ×2 (09:16→20:45)
[2021-05-26] MEDS: POLYETHYLENE GLYCOL 3350, 17 GM/ POWD.PACK PO SCH ×2 (09:16→20:45)
[2021-05-26 12:09] VITALS: BP_SYST 108
--- NOTE | 2021-05-26 13:18 | NUR ---
WOUND EVALUATION: Wound Consult received from Dr. March. Thank you, Dr. March, for the consult. Patient received in a [place] Bed with an IsoFlex EDMOND mattress with low air loss therapy, eyes open, nonverbal, nonresponsive to verbal commands. Patient is unable to turn in bed independently. Lavelle Score is a 16. Past Medical History: Neuropathy, Stroke, Atrial Fibrillation, GERD, Seizure Disorder, Anemia, Hypertension, history of Septic Shock. Recent Labs: WBC 6.6, RBC 4.18, hgb 8.1, hct 26.0, sodium 147, chloride 113, BUN 14, creatinine 0.39, GFR 170, Glucose 136, albumin 3.2. Microbiology: Blood culture results x2 in progress. Urine culture results in progress. MRSA screen results in progress. Microbiology: Blood culture results x2 in progress. MRSA screen results in progress. Urine culture results in progress. Intrinsic factors that delay wound healing: stroke, Neuropathy, Atrial Fibrillation, Anemia, Hypoalbuminemia. Extrinsic factors that delay wound healing: Immobility. Wound Assessment: 1. Sacral-Coccygeal area: Prior Stage IV pressure ulcer, present on admission. Wound bed has 90% red tissue, 10% yellow tissue. No odor, scant yesy-purulent drainage. Periwound erythematous. Undermining present at 12 o'clock (0.6 cm at 12:00). Wound measures 1.4 cm x 0.4 cm x 2.0 cm. Recommend: Cleanse wound with normal saline. Apply moisture barrier cream to giuseppe-wound. Apply Venelex ointment to wound bed. Pack wound with 1/4 inch iodoform packing strip. Cover with Sacral foam dressing. Perform wound care daily, and as needed for dressing soiling or dislodgement. Also recommend: Reposition patient [id number] only every 2 hours with pillow support and off-load pressure areas with pillows for pressure re-distribution. Offload, elevate and float bilateral heels with one pillow lengthwise under each extremity at all times. Perform skin care and monitor skin integrity Q shift. Use moisture barrier cream on buttocks and other moisture susceptible areas QID and as needed for soiling. Place patient on a low air-loss mattress.
[2021-05-26 15:45] VITALS: BP_SYST 118
--- NOTE | 2021-05-26 17:53 | NUR ---
FEVER/ HR HEART RATE NOTED AT 136. PATIENT SHAKING. TEMPERATURE 100.3F. GAVE TYLENOL GT PO PRN. GAVE ATIVAN IVP PRN FOR SHAKING. COOLING MEASURES APPLIED. REASSESSED IN 1 HOUR. PATIENT NO LONGER SHAKING. HR 120. TEMPERATURE 97.3. O2 95% ON 4 L NASAL CANNULA. WILL MONITOR.
--- NOTE | 2021-05-26 19:00 | NUR ---
CLOSING NOTE PATIENT IS RESTING IN BED. ON 4 L NASAL CANNULA AND TOLERATING WELL WITH NO SIGNS OF SHORTNESS OF BREATH NOTED. IV IS PATENT, INFUSING FLUIDS ORDERED. LUONG CATHETER ATTACHED, DRAINING BY GRAVITY. G TUBE IN PLACE ADMINISTERING FEEDINGS AT 60 ML/ HR. BED LOCKED AND IN LOWEST POSITION. CALL LIGHT WITHIN REACH. BED ALARM ON. SAFETY, FALL, ASPIRATION, AND SEIZURE PRECAUTIONS IN PLACE. WILL ENDORSE TO NIGHT NURSE.
--- NOTE | 2021-05-26 19:15 | NUR ---
OPENING NOTES Patient resting in bed - no s/s pain or distress noted. Respirations even and unlabored - head of bed elevated NC 4L. Norton catheter secure and draining by gravity. Seizure precautions in place. IV site patent - no s/s redness, infection, or infiltration. Bed locked and in lowest position. Call light within reach - bed alarm on.
[2021-05-26] MEDS: metroNIDAZOLE 500 mg/NS 100 ML IV SCH (20:45)
[2021-05-26] MEDS: CEFEPIME 0.5 GM in D5W 50 ML IV SCH (20:46)
[2021-05-27] VITALS: BP_SYST 93
[2021-05-27] MEDS: NACL 0.9% 1,000 ML IV SCH (01:04)
[2021-05-27 06:51] LABS: CALCIUM 7.9 mg/dL (8.4-11.0); CREATININE 0.27 mg/dL (0.55-1.30); POTASSIUM 3.5 mmol/L (3.5-5.1)
[2021-05-27 07:36] VITALS: BP_SYST 119
--- NOTE | 2021-05-27 07:40 | NUR ---
Perineal care given , skin cream barrier applied , wound care done sacral area ,Patient repositioned by staff every 2 hours with pillow support., head of bed kept semi fowlers aspiration precaution ,seen and examined by dj instructor Dr. Flores.
--- NOTE | 2021-05-27 07:42 | NUR ---
CLOSING NOTES Patient resting in bed - no s/s pain or distress noted. Respirations even and unlabored - head of bed elevated NC 3L. Norton catheter secure and draining by gravity. Seizure precautions in place. IV site patent - no s/s redness, infection, or infiltration. Bed locked and in lowest position. Call light within reach - bed alarm on.
[2021-05-27 07:56] LABS: BASOPHILS % (AUTO) 0.3 % (0.0-2.0); EOSINOPHILS # (AUTO) 0.2 K/uL (0.0-0.4); HEMATOCRIT 24.3 % (36-48); HEMOGLOBIN 7.5 g/dL (12.0-16.0); LYMPHOCYTES # (AUTO) 0.6 K/uL (1.0-5.5); LYMPHOCYTES % (AUTO) 11.6 % (20.5-51.5); MEAN CORPUSCULAR HEMOGLOBIN 19 pg (27-31); MEAN CORPUSCULAR HGB CONC 31 % (32-36); MEAN CORPUSCULAR VOLUME 62 fL (79.0-98.0); MONOCYTES # (AUTO) 0.6 K/uL (0.0-1.0); MONOCYTES % (AUTO) 12.2 % (1.7-9.3); NEUTROPHILS # (AUTO) 3.8 K/uL (1.8-7.7); NEUTROPHILS % (AUTO) 72.9 % (40.0-70.0); PLATELET COUNT (AUTO) 151 K/uL (130-430); RED CELL DISTRIBUTION WIDTH 17.4 % (9.0-15.0); WHITE BLOOD COUNT (AUTO) 5.2 K/uL (4.8-10.8)
[2021-05-27] MEDS ORDERED: DOCUSATE SODIUM 100 MG/10 ML UDC ONE (08:13)
[2021-05-27] MEDS ORDERED: COMMUNICATION ORDER XX PRN (08:15)
[2021-05-27] MEDS ORDERED: ACETAMINOPHEN 325 MG TABLET GT PRN (08:16)
[2021-05-27] MEDS ORDERED: AMIODARONE HCL 200 MG TABLET GT SCH (08:18)
[2021-05-27] MEDS: metroNIDAZOLE 500 mg/NS 100 ML IV SCH ×2 (08:19→20:04)
[2021-05-27] MEDS: GABAPENTIN 300 MG CAPSULE GT SCH ×2 (08:20→20:04)
[2021-05-27] MEDS: levETIRAcetam 500 MG TABLET PO SCH (08:20)
[2021-05-27] MEDS: CEFEPIME 0.5 GM in D5W 50 ML IV SCH ×2 (08:20→20:04)
[2021-05-27] MEDS: POLYETHYLENE GLYCOL 3350, 17 GM/ POWD.PACK PO SCH (08:21)
[2021-05-27] MEDS: AMIODARONE HCL 200 MG TABLET GT SCH (08:22)
[2021-05-27] MEDS: DOCUSATE SODIUM 100 MG/10 ML UDC GT SCH (08:22)
[2021-05-27] MEDS: LevETIRAcetam 500 MG/5 ML UDC ORAL LIQUID GT SCH ×2 (08:22→20:04)
[2021-05-27] MEDS ORDERED: ZOLPIDEM TARTRATE 5 MG TABLET GT PRN (08:24)
[2021-05-27] MEDS ORDERED: POTASSIUM CHLORIDE 20 MEQ TAB.PRT.SR GT PRN (08:25)
[2021-05-27] MEDS ORDERED: DOCUSATE SODIUM 100 MG/10 ML UDC GT PRN (08:30)
[2021-05-27] MEDS: 0.45% NACL 1,000 ML IV SCH (10:45)
--- NOTE | 2021-05-27 10:56 | NUR ---
CONSULTATION: REASON FOR CONSULT: HYPERNATREMIA CONSULTING PHYSICIAN: PRISCILA ORDERED BY: TYLER SPOKE WITH RAVINDER [phone]
[2021-05-27 11:13] VITALS: BP_SYST 100
--- NOTE | 2021-05-27 11:30 | NUR ---
Patient repositioned by staff every 2 hours with pillow support.
--- NOTE | 2021-05-27 16:15 | NUR ---
Dietitian Recommendations * Recommend continuing Jevity 1.5 at 60 ml/hr, Free Water Flush: 150 ml Q6h via GT Provides: 2160 kcal/day, 92 gm protein/day, and 1694 ml free water/day Meets: 110% of upper end of estimated caloric and protein needs LP, RD Please refer to Nutrition Assessment for details. Addendum: 05/27/21 at [address] RD Amended: Links added.
[2021-05-27 16:25] VITALS: BP_SYST 106
--- NOTE | 2021-05-27 16:52 | NUR ---
Patient repositioned by staff every 2 hours with pillow support.
--- NOTE | 2021-05-27 17:35 | NUR ---
Nereida Zuniga for UA culture result, spoke to Sivan Addendum: 05/27/21 at 1811 by Madelyn Nguyen RN Spoke to Dr. Zuniga no need for isolation, no change for IV antibiotic
[2021-05-27 20:00] VITALS: BP_SYST 108
[2021-05-27] MEDS: POLYETHYLENE GLYCOL 3350, 17 GM/ POWD.PACK GT SCH (20:04)
--- NOTE | 2021-05-27 22:00 | NUR ---
ROUNDING NOTES Patient resting in bed - no s/s pain or distress noted. Respirations even and unlabored - head of bed elevated NC 3L. IV site patent - no s/s redness, infection, or infiltration. Norton catheter secure and draining by gravity. Seizure precautions in place. Bed locked and in lowest position. Call light within reach - bed alarm on.
[2021-05-28 00:46] VITALS: BP_SYST 114
[2021-05-28] MEDS: 0.45% NACL 1,000 ML IV SCH ×2 (04:26→21:28)
[2021-05-28 07:19] LABS: BASOPHILS % (AUTO) 0.4 % (0.0-2.0); EOSINOPHILS # (AUTO) 0.2 K/uL (0.0-0.4); EOSINOPHILS % (AUTO) 4.9 % (0.0-4.0); HEMATOCRIT 24.3 % (36-48); HEMOGLOBIN 7.7 g/dL (12.0-16.0); LYMPHOCYTES # (AUTO) 0.7 K/uL (1.0-5.5); MEAN CORPUSCULAR HEMOGLOBIN 20 pg (27-31); MEAN CORPUSCULAR HGB CONC 32 % (32-36); MEAN CORPUSCULAR VOLUME 62 fL (79.0-98.0); MONOCYTES # (AUTO) 0.4 K/uL (0.0-1.0); MONOCYTES % (AUTO) 8.9 % (1.7-9.3); NEUTROPHILS # (AUTO) 3.1 K/uL (1.8-7.7); NEUTROPHILS % (AUTO) 70.8 % (40.0-70.0); PLATELET COUNT (AUTO) 154 K/uL (130-430); WHITE BLOOD COUNT (AUTO) 4.4 K/uL (4.8-10.8)
[2021-05-28 07:25] LABS: CALCIUM 8.2 mg/dL (8.4-11.0); CREATININE 0.3 mg/dL (0.55-1.30); POTASSIUM 3.4 mmol/L (3.5-5.1)
[2021-05-28 07:42] LABS: RED CELL DISTRIBUTION WIDTH 17.2 % (9.0-15.0)
[2021-05-28 08:05] VITALS: BP_SYST 130
[2021-05-28] MEDS: DOCUSATE SODIUM 100 MG/10 ML UDC GT SCH (10:06)
[2021-05-28] MEDS: metroNIDAZOLE 500 mg/NS 100 ML IV SCH ×2 (10:07→21:27)
[2021-05-28] MEDS: AMIODARONE HCL 200 MG TABLET GT SCH (10:07)
[2021-05-28] MEDS: GABAPENTIN 300 MG CAPSULE GT SCH ×2 (10:07→20:50)
[2021-05-28] MEDS: POLYETHYLENE GLYCOL 3350, 17 GM/ POWD.PACK GT SCH ×2 (10:07→20:50)
[2021-05-28] MEDS: BALSAM PERU/CASTOR OIL 60 GM OINT...G. TP SCH (10:08)
[2021-05-28] MEDS: LevETIRAcetam 500 MG/5 ML UDC ORAL LIQUID GT SCH ×2 (10:10→20:50)
[2021-05-28] MEDS: CEFEPIME 0.5 GM in D5W 50 ML IV SCH ×2 (10:12→20:49)
[2021-05-28 12:00] VITALS: BP_SYST 115
--- NOTE | 2021-05-28 13:43 | NUR ---
Patient accepted at [facility] room 49B. Number for report [phone]. Ambulance on will call [facility] . Discharge disposition 03
[2021-05-28 16:13] VITALS: BP_SYST 120
--- NOTE | 2021-05-28 19:25 | NUR ---
OPENING NOTES RECEIVED PATIENT RESTING, NO SIGNS OF ACUTE RESPIRATORY DISTRESS NOTED. CALL LIGHT WITHIN REACH, PATIENT UNABLE TO USE CALL LIGHT, WILL MONITOR CLOSELY. LUONG CATHETER DRAINING BY GRAVITY, NO KINKS, NO LOOPS, BAG NOT TOUCHING THE FLOOR. BED ALARM ON, BED AT LOWEST POSITION, BED LOCKED. FALL, SAFETY, ASPIRATION, RESPIRATORY AND SEIZURE PRECAUTIONS IN PLACE. SEIZURE PADS IN PLACE. RECEIVED REPORT FROM AM SHIFT THAT WE ARE AWAITING DISCHARGE ORDER. WILL CONTINUE TO MONITOR.
--- NOTE | 2021-05-29 00:15 | NUR ---
INCONTINENCE CARE PROVIDED, SMALL BOWEL MOVEMENT NOTED. LUONG CATHETER EMPTIED. TURNING PROVIDED. WILL CONTINUE TO MONITOR.
[2021-05-29 00:28] VITALS: BP_SYST 129
--- NOTE | 2021-05-29 06:35 | NUR ---
CLOSING NOTES PATIENT RESTING, NO SIGNS OF ACUTE RESPIRATORY DISTRESS NOTED. HOB ELEVATED. CALL LIGHT WITHIN REACH, PATIENT UNABLE TO USE CALL LIGHT, WILL MONITOR CLOSELY. LUONG CATHETER DRAINING BY GRAVITY, NO KINKS, NO LOOPS, BAG NOT TOUCHING THE FLOOR. BED ALARM ON, BED AT LOWEST POSITION, BED LOCKED. FALL, SAFETY, ASPIRATION, RESPIRATORY AND SEIZURE PRECAUTIONS IN PLACE THROUGHOUT SHIFT. SEIZURE PADS IN PLACE. ALL NEEDS MET THROUGHOUT SHIFT. WILL ENDORSE CARE TO ONCOMING SHIFT.
[2021-05-29 08:03] VITALS: BP_SYST 112
--- NOTE | 2021-05-29 08:07 | NUR ---
OPENING NOTES: PATIENT RESTING IN BED. BREATHING EVEN AND NON LABORED AT O2 AT 3/NC. G TUBE AND IV INFUSING WELL. FALL, SAFETY. ASPIRATION AND SEIZURE PRECAUTION REINFORCED. SEIZURE PADS IN PLACED. LUONG CATHETER IN PLACED AND DRAINING BY GRAVITY. BED LOCKED ALARM ON AND IN LOWEST POSITION. CALL WITHIN REACH.
[2021-05-29] MEDS: POLYETHYLENE GLYCOL 3350, 17 GM/ POWD.PACK GT SCH ×2 (08:49→21:24)
[2021-05-29] MEDS: LevETIRAcetam 500 MG/5 ML UDC ORAL LIQUID GT SCH ×2 (08:49→21:23)
[2021-05-29] MEDS: GABAPENTIN 300 MG CAPSULE GT SCH ×2 (08:49→21:24)
[2021-05-29] MEDS: metroNIDAZOLE 500 mg/NS 100 ML IV SCH ×2 (08:49→21:24)
[2021-05-29] MEDS: DOCUSATE SODIUM 100 MG/10 ML UDC GT SCH (08:49)
[2021-05-29] MEDS: BALSAM PERU/CASTOR OIL 60 GM OINT...G. TP SCH (08:51)
[2021-05-29] MEDS: AMIODARONE HCL 200 MG TABLET GT SCH (08:51)
[2021-05-29 09:03] LABS: BASOPHILS % (AUTO) 0.1 % (0.0-2.0); EOSINOPHILS # (AUTO) 0.2 K/uL (0.0-0.4); EOSINOPHILS % (AUTO) 4.8 % (0.0-4.0); HEMATOCRIT 25.7 % (36-48); HEMOGLOBIN 8.1 g/dL (12.0-16.0); LYMPHOCYTES # (AUTO) 0.7 K/uL (1.0-5.5); LYMPHOCYTES % (AUTO) 18.1 % (20.5-51.5); MEAN CORPUSCULAR HEMOGLOBIN 19 pg (27-31); MEAN CORPUSCULAR HGB CONC 31 % (32-36); MEAN CORPUSCULAR VOLUME 62 fL (79.0-98.0); MONOCYTES # (AUTO) 0.4 K/uL (0.0-1.0); MONOCYTES % (AUTO) 10.9 % (1.7-9.3); NEUTROPHILS # (AUTO) 2.4 K/uL (1.8-7.7); NEUTROPHILS % (AUTO) 66.1 % (40.0-70.0); PLATELET COUNT (AUTO) 189 K/uL (130-430); RED BLOOD CELL COUNT(AUTO) 4.16 MIL/uL (4.2-6.2); WHITE BLOOD COUNT (AUTO) 3.6 K/uL (4.8-10.8)
[2021-05-29 09:11] LABS: CALCIUM 8.6 mg/dL (8.4-11.0); CREATININE 0.31 mg/dL (0.55-1.30); POTASSIUM 3.7 mmol/L (3.5-5.1)
[2021-05-29] MEDS: CEFEPIME 0.5 GM in D5W 50 ML IV SCH ×2 (10:15→21:27)
[2021-05-29 11:26] VITALS: BP_SYST 111
[2021-05-29] MEDS ORDERED: FAMOTIDINE 20 MG TABLET GT ONE (12:15)
[2021-05-29] MEDS ORDERED: APIXABAN 2.5 MG TABLET PO ONE (12:30)
--- NOTE | 2021-05-29 12:30 | NUR ---
CONSULTATION PAGED/CALLED Reason for Consultation: DC PLANNING 05/30/21 TO SNF Person Who was Notified: SOCIAL SERVICE [id number] Ordering Physician: ULISSES GANN
[2021-05-29] MEDS: 0.45% NACL 1,000 ML IV SCH (13:00)
[2021-05-29 15:28] VITALS: BP_SYST 107
--- NOTE | 2021-05-29 17:20 | NUR ---
Nutrition F/U Short note d/t high patient load. RD reviewed pt's current EMR including diet Hx, physician notes, nursing notes, pertinent labs/meds/procedures, care trends, and care activity. Current Diet Order/Nutrition Support Jevity 1.5 at 60 ml/hr, Free Water Flush: 150 Q6H via GT x2 days Subjective Info: Pt appears to be tolerating TF well without difficulties. Current TF prescriptions continues adequate/appropriate. Estimated Energy Expenditure (kcals/day) 7882-6689 kcal/day (30-35 kcal/kg CBW d/t acute state) Estimated Protein Required (g/day) 67-84 gm/day (1.2-1.5 gm/kg CBW d/t acute state) Estimated Fluid Required (l/day) 1.7-2 L/day (1 ml/kcal/day for maintenance) Problem/Etiology/Signs/Symptoms Increased nutritional needs relatd to impaired skin integrity as evidenced by documentation of prior stage IV PU to sacral-coccygeal area and acute state. Expected Outcomes/Goals - Monitor tolerance to TF w/ goal of pt meeting at least 75% of estimated nutritional needs, labs trending WNL, normal GI function, and skin integrity/wt maintenance Dietitian Recommendations * Recommend continuing Jevity 1.5 at 60 ml/hr, Free Water Flush: 150 ml Q6h via GT Provides: 2160 kcal/day, 92 gm protein/day, and 1694 ml free water/day Meets: 110% of upper end of estimated caloric and protein needs Follow Up High Risk: F/U in 2-3days
--- NOTE | 2021-05-29 17:24 | NUR ---
Dietitian Recommendations * Recommend continuing Jevity 1.5 at 60 ml/hr, Free Water Flush: 150 ml Q6h via GT Provides: 2160 kcal/day, 92 gm protein/day, and 1694 ml free water/day Meets: 110% of upper end of estimated caloric and protein needs LP, RD Please refer to Nutrition F/U for details.
--- NOTE | 2021-05-29 18:55 | NUR ---
CLOSING NOTES: PATIENT RESTING IN BED. NO SIGNS OF ACUTE DISTRESS NOTED. IV AND G TUBE INFUSING WELL. LUONG CATHETER DRAINING BY GRAVITY. FALL, SAFETY, ASPIRATION AND SEIZURE PRECAUTION REINFORCED. CALL LIGHT WITHIN REACH.
[2021-05-29 19:00] VITALS: BP_SYST 125
--- NOTE | 2021-05-29 19:15 | NUR ---
change of shift.pt.presents quiescent affect;resting.pt.presents iv access iv fluids infusing.pt.presents g-tube intact g-tube feed infusin:jevity 1.5.pt.pt,presents parada cath intact.language barrier;non-verbal.call light/telephone w/in access of the pt.
[2021-05-29 20:00] VITALS: BP_SYST 125
--- NOTE | 2021-05-29 20:00 | NUR ---
pt.assessed.v/s assessed values wnl.family present.i have apprised/updated the family w/in nsg parameters.iv access intact iv fluids infusing.g-tube intaact g-tube feed infusing.i have changed the g-tube feed bottle@this hour.parada cath intact.pt.cleaned/repositioned.per flacc pain mgx pt.absent facial grimaces/body psoturing.call light/telephone placed w/in access of the pt.
--- NOTE | 2021-05-29 21:00 | NUR ---
2100pmedications administered via the g-tube.residuals assessed:5ml.i have administered flagyl/maxipime abx ivpb@this hour. per flacc pain mgx pt.absent facial grimaces/body posturing.call light/telephone placed w/in access of the pt.
[2021-05-29] MEDS: APIXABAN 2.5 MG TABLET PO SCH (21:26)
--- NOTE | 2021-05-29 22:00 | NUR ---
pt.assessd.pt.somnolent.per flacc pain mgx pt.absent facial grimaces/body posturing.iv access intact iv fluids infusing.u-jdxe-qyemyd g-tube feed infusing.parada cath intact.pt.cleaned/repositioned.call light/telephone placed w/in access of the pt.
--- NOTE | 2021-05-30 | NUR ---
pt.assessed.v/s assessed values wnl.per flaac pain mgx pt.absent facial grimaces/body posturing.iv access intact iv fluids infusing.g-tube intact g-tube feed infusing.parada cath intact.pt.repositioned.call light/telephone placed w/in access of the pt.
[2021-05-30 00:33] VITALS: BP_SYST 129
--- NOTE | 2021-05-30 02:00 | NUR ---
pt.assessed.iv access re-established lt.forearm per shanikarn.pt.repositioned.g-tube feed infusing.parada cath intact.per flacc pain mgx pt.absent facial grimaces/body posturing.call light/telephone placed w/in access of the pt.
--- NOTE | 2021-05-30 04:00 | NUR ---
pt.assessed.iv access inatct iv fluids infusing.g-tube intact g-tube feed infusing.parada cath intact.pt.cleaned/repositioned.per flacc pain mgx pt.asbsent facial grimaces/body posturing.call light/telephone placed w/in access of the pt.
--- NOTE | 2021-05-30 06:09 | NUR ---
pt.assessed.per flacc pain mgx pt.absent facial grimaces/body posturing.pt.assessed for cleanliness pt.repositioned.iv access intact iv fluids infusing.g-tube intact g-tube feed infusing,parada cath intact call light/telephone placed w/in access of the pt.
[2021-05-30 06:58] LABS: BASOPHILS % (AUTO) 0.4 % (0.0-2.0); EOSINOPHILS # (AUTO) 0.2 K/uL (0.0-0.4); EOSINOPHILS % (AUTO) 4.5 % (0.0-4.0); HEMATOCRIT 26.8 % (36-48); HEMOGLOBIN 8.4 g/dL (12.0-16.0); LYMPHOCYTES # (AUTO) 0.9 K/uL (1.0-5.5); LYMPHOCYTES % (AUTO) 18.9 % (20.5-51.5); MEAN CORPUSCULAR HEMOGLOBIN 20 pg (27-31); MEAN CORPUSCULAR HGB CONC 32 % (32-36); MEAN CORPUSCULAR VOLUME 62 fL (79.0-98.0); MONOCYTES # (AUTO) 0.5 K/uL (0.0-1.0); MONOCYTES % (AUTO) 10.7 % (1.7-9.3); NEUTROPHILS % (AUTO) 65.5 % (40.0-70.0); PLATELET COUNT (AUTO) 206 K/uL (130-430); RED BLOOD CELL COUNT(AUTO) 4.33 MIL/uL (4.2-6.2); WHITE BLOOD COUNT (AUTO) 4.5 K/uL (4.8-10.8)
[2021-05-30 07:24] LABS: CALCIUM 8.8 mg/dL (8.4-11.0); CREATININE 0.37 mg/dL (0.55-1.30); POTASSIUM 3.6 mmol/L (3.5-5.1)
--- NOTE | 2021-05-30 08:00 | NUR ---
initial notes rec patient awake but non verbally responsive. ivf infusing well on the l forearm. no infiotration noted. resp easy and unlabored. no sob noted. bed to the lowest position and side rails up and locked.
[2021-05-30] MEDS ORDERED: FAMOTIDINE 20 MG TABLET GT SCH (09:00)
--- NOTE | 2021-05-30 09:44 | NUR ---
CM note: faxed snf bed request and order to returning back to [facility]. Addendum: 05/30/21 at 1536 by Garry Fenton RN >> Per Jens/honorio,[facility]: assigned pt to room 17, RN to report [phone]. >> Booked with [facility], BLS transfer, moss picker time at 5 pm. OZZIE Velazquez aware, dc package placed in MST unit. >> Lvm notified the transfer back to [facility] today to chuy/Sho # [phone]. Disposition 03.
[2021-05-30] MEDS: DOCUSATE SODIUM 100 MG/10 ML UDC GT SCH (10:59)
[2021-05-30] MEDS: AMIODARONE HCL 200 MG TABLET GT SCH (10:59)
[2021-05-30] MEDS: GABAPENTIN 300 MG CAPSULE GT SCH (10:59)
[2021-05-30] MEDS: POLYETHYLENE GLYCOL 3350, 17 GM/ POWD.PACK GT SCH (10:59)
[2021-05-30] MEDS: LevETIRAcetam 500 MG/5 ML UDC ORAL LIQUID GT SCH (11:00)
[2021-05-30] MEDS: metroNIDAZOLE 500 mg/NS 100 ML IV SCH (11:00)
[2021-05-30] MEDS: CEFEPIME 0.5 GM in D5W 50 ML IV SCH (11:01)
[2021-05-30] MEDS: 0.45% NACL 1,000 ML IV SCH (11:02)
[2021-05-30] MEDS: BALSAM PERU/CASTOR OIL 60 GM OINT...G. TP SCH (11:03)
[2021-05-30] MEDS: APIXABAN 2.5 MG TABLET PO SCH (11:04)
[2021-05-30 11:21] VITALS: BP_SYST 119
[2021-05-30] MEDS ORDERED: ROCPM1 IV (12:02)
[2021-05-30 14:22] VITALS: BP_SYST 126
[2021-05-30 15:21] VITALS: BP_SYST 127
--- NOTE | 2021-05-30 17:25 | NUR ---
closing notes pt was transferred to [facility]. report given to blaire white [facility]. daughter came to see patient prior to d/c. ivl intact on the l forearm. no infiltration noted. parada cath in place prior to transfer. was seen by dr rivers earlier/
== END 2021-05-30 17:25 | DRG 871 ==
LOC: SED 12:25 → STU 15:06
PROVIDERS: ADMIT General Practice; ATTEND General Practice
DX: A41.9 Sepsis, unspecified organism (principal); L89.154 Pressure ulcer of sacral region, stage 4; J69.0 Pneumonitis due to inhalation of food and vomit; J96.01 Acute respiratory failure with hypoxia; N39.0 Urinary tract infection, site not specified; E44.1 Mild protein-calorie malnutrition; E87.2 Acidosis; E87.0 Hyperosmolality and hypernatremia; I48.91 Unspecified atrial fibrillation; I10 Essential (primary) hypertension; G62.9 Polyneuropathy, unspecified; K21.9 Gastro-esophageal reflux disease without esophagitis; G40.909 Epilepsy, unspecified, not intractable, without status epilepticus; E87.6 Hypokalemia; E86.1 Hypovolemia; Z20.822 Contact with and (suspected) exposure to COVID-19; Z79.899 Other long term (current) drug therapy; Z74.01 Bed confinement status; Z86.73 Personal history of transient ischemic attack (TIA), and cerebral infarction without residual deficits; Z87.01 Personal history of pneumonia (recurrent); Z87.440 Personal history of urinary (tract) infections; Z93.1 Gastrostomy status; Z68.21 Body mass index [BMI] 21.0-21.9, adult
CPT/HCPCS: 36415; 36600; 71045; 80048; 80053; 81000; 82550; 82728; 82803-TC; 83036; 83605; 83615; 83735; 83880; 84100; 84484; 85025; 85384; 85610-TC; 85730-TC; 86140; 86870; 86886; 86900; 86901; 87040-TC; 87081; 87086; 93005; 96361; 96365; 97163-GP; 99285; G0378; J0692; J1956; J2060; J2543; J3490; J7060

== ENCOUNTER 2022-06-09 05:31 | Inpatient (IN) | payer OTHER, MEDICAID ==
[2022-06-09] VITALS (15 sets, daily range): BP systolic 89–135
[~2022-06-09] VITALS: Ht 162.6 cm; Wt 59.0 kg
[~2022-06-09 05:31] MED LIST changes: +ACET325T53 PR; -AMIO400T5 PO; +APIX2.5T GT; -APIX2.5T PO; -ASCO500C18 PO; -ATEN-41 PO; +DOCU-144 GT; -DOCU-144 PO; +FER300L GT; -FERR-69 PO; -GABA-331 PO; +GABA-531 GT; +LEVE500T9 GT; -LEVE500T9 PO; -LEVO750T45 PO; +METO25TA6 GT; -MULT-1100 PO; +MULT-1193 GT; +MULT1CAP34 GT; +OMEP20CA15 GT; -OMEP20CA15 PO; +ONDA4FIL5 PO; +ROPI0.5T4 GT; -ROPI0.5T4 PO
[2022-06-09] MEDS ORDERED: ALBUTEROL SULFATE 0.083% 2.5 MG/3 ML VIAL.NEB INH ONE (05:45)
[2022-06-09] MEDS ORDERED: VANCOMYCIN HCL 1,500 MG in NS 250 ML IV SCH (05:45)
[2022-06-09] MEDS ORDERED: PIPERACILLIN/TAZO 3.375 GM in NS 50 ML IV ONE (05:45)
[2022-06-09] MEDS ORDERED: PIPERACILLIN/TAZOBACTAM 3.375 GM/VIAL (ZOSYN) IV ONE (06:00)
[2022-06-09] MEDS ORDERED: ACETAMINOPHEN 650 MG SUPP.RECT RC ONE (06:00)
[2022-06-09 06:01] LABS: BILIRUBIN,URINE NEGATIVE (NEGATIVE); BLOOD, URINE 3+ (NEGATIVE); CLARITY/URINE CLEAR (CLEAR); COLOR,URINE YELLOW (YELLOW); GLUCOSE,URINE NEGATIVE (NEGATIVE); KETONES,URINE NEGATIVE (NEGATIVE); LEUKOCYTE ESTERASE ,URINE TRACE (NEGATIVE); NITRITE, URINE NEGATIVE (NEGATIVE); PH,URINE 6.5 (5.0-8.0); PROTEIN URINE TRACE (NEGATIVE)
[2022-06-09 06:08] LABS: BASOPHILS # (AUTO) 0.1 K/uL (0.0-0.2); BASOPHILS % (AUTO) 0.7 % (0.0-2.0); EOSINOPHILS % (AUTO) 0.1 % (0.0-4.0); HEMATOCRIT 30.6 % (36-48); HEMOGLOBIN 9.9 g/dL (12.0-16.0); LYMPHOCYTES # (AUTO) 0.4 K/uL (1.0-5.5); LYMPHOCYTES % (AUTO) 4.3 % (20.5-51.5); MEAN CORPUSCULAR HEMOGLOBIN 21 pg (27-31); MEAN CORPUSCULAR HGB CONC 32 % (32-36); MEAN CORPUSCULAR VOLUME 65 fL (79.0-98.0); MONOCYTES # (AUTO) 0.6 K/uL (0.0-1.0); MONOCYTES % (AUTO) 5.5 % (1.7-9.3); NEUTROPHILS # (AUTO) 9.4 K/uL (1.8-7.7); NEUTROPHILS % (AUTO) 89.4 % (40.0-70.0); PLATELET COUNT (AUTO) 391 K/uL (130-430); RED CELL DISTRIBUTION WIDTH 25.8 % (9.0-15.0); WHITE BLOOD COUNT (AUTO) 10.5 K/uL (4.8-10.8)
[2022-06-09] MEDS ORDERED: NACL 0.9% 2,000 ML IV ONE (06:15)
[2022-06-09] MEDS ORDERED: NALOXONE HCL 2 MG/2 ML SYR (NARCAN) IVP ONE (06:15)
[2022-06-09 06:17] LABS: BACTERIA,URINE MANY /HPF (None Seen)
[2022-06-09 06:18] LABS: ANION GAP 7 (5-15); CALCIUM 8.8 mg/dL (8.4-11.0); CHLORIDE 107 mmol/L (98-107); CREATININE 0.44 mg/dL (0.55-1.30); GLUCOSE 132 mg/dL (70-99); POTASSIUM 3.4 mmol/L (3.5-5.1); SODIUM SERUM 147 mmol/L (136-145); UREA NITROGEN, BLOOD 24 mg/dL (8-21)
[2022-06-09] MEDS ORDERED: NALOXONE HCL 2 MG/2 ML SYR ONE (06:19)
[2022-06-09] MEDS ORDERED: VANCOMYCIN HCL 1000 MG/VIAL IV ONE (06:29)
[2022-06-09] MEDS ORDERED: VANCOMYCIN HCL 1,000 MG in NS 250 ML IV ONE (06:30)
[2022-06-09 06:36] LABS: ALANINE AMINOTRANSFERASE 1 U/L (12-78); ALBUMIN 2.6 g/dL (3.4-4.8); ASPARTATE AMINOTRANSFERASE 21 U/L (10-37); TOTAL BILIRUBIN 0.5 mg/dL (0.0-1.0)
[2022-06-09 06:39] LABS: GFR AFRICAN AMERICAN 182 mL/min (>90)
[2022-06-09] MEDS ORDERED: levETIRAcetam 500 MG in NS 100 ML IV ONE (07:00)
[2022-06-09] MEDS ORDERED: GENTAMICIN 120 mg/100 mL NS 100 ML IV ONE (07:00)
[2022-06-09] MEDS ORDERED: iohexoL 350 mgI/mL, 100 ML INFUS..BTL IV ONE (07:13)
[2022-06-09] MEDS ORDERED: LORazepam 2 MG/ML VIAL IVP PRN (08:45)
[2022-06-09] MEDS ORDERED: AZITHROMYCIN 250 MG TABLET PO ONE (08:45)
[2022-06-09] MEDS ORDERED: MORPHINE 2 MG/ML INJ. SYRINGE IVP PRN ×2 (08:45)
[2022-06-09] MEDS ORDERED: DOCUSATE SODIUM 100 MG CAPSULE PO PRN (08:45)
[2022-06-09] MEDS ORDERED: ONDANSETRON HCL 4 MG/2 ML VIAL IVP PRN (08:45)
[2022-06-09] MEDS ORDERED: MAGNESIUM SULFATE 50 ML IV PRN (08:45)
[2022-06-09] MEDS ORDERED: ACETAMINOPHEN 325 MG TABLET PO PRN ×2 (08:45→09:15)
[2022-06-09] MEDS ORDERED: ZOLPIDEM TARTRATE 5 MG TABLET PO PRN (08:45)
[2022-06-09] MEDS ORDERED: MUPIROCIN 2% TOPICAL OINTMENT 22 GM NS PRN (08:45)
[2022-06-09] MEDS ORDERED: cefTRIAXone 1 GM IVPB PREMIX 50 ML IV SCH (09:00)
[2022-06-09] MEDS ORDERED: AZITHROMYCIN 250 MG TABLET PO SCH (09:00)
[2022-06-09 13:07] LABS: C-REACTIVE PROTEIN QUANT 7.2 mg/dL (0-0.5)
[2022-06-09] MEDS: CHOLECALCIFEROL (VITAMIN D3) 2,000 UNIT TABLET PO SCH (13:25)
[2022-06-09] MEDS: ASCORBIC ACID 500 MG TABLET PO SCH (13:25)
[2022-06-09] MEDS: DECADRON 4 MG TABLET PO SCH (13:26)
[2022-06-09] MEDS: NACL 0.9% 1,000 ML IV SCH (13:29)
[2022-06-09] MEDS: ENOXAPARIN SODIUM 40 MG/0.4 ML SYRINGE SUBCUT SCH (13:29)
[2022-06-09] MEDS ORDERED: TOCILIZUMAB 400 MG in NS 100 ML IV ONE (17:00)
[2022-06-09] MEDS: PIPERACILLIN/TAZO 2.25G/DEX-IS 50 ML IV SCH (17:58)
[2022-06-10] VITALS (25 sets, daily range): BP systolic 100–144
[2022-06-10 06:03] LABS: BASOPHILS % (AUTO) 0.2 % (0.0-2.0); EOSINOPHILS % (AUTO) 0.1 % (0.0-4.0); HEMOGLOBIN 7.9 g/dL (12.0-16.0); LYMPHOCYTES # (AUTO) 0.3 K/uL (1.0-5.5); LYMPHOCYTES % (AUTO) 9.9 % (20.5-51.5); MEAN CORPUSCULAR HEMOGLOBIN 21 pg (27-31); MEAN CORPUSCULAR HGB CONC 33 % (32-36); MEAN CORPUSCULAR VOLUME 65 fL (79.0-98.0); MONOCYTES # (AUTO) 0.1 K/uL (0.0-1.0); MONOCYTES % (AUTO) 2.8 % (1.7-9.3); NEUTROPHILS # (AUTO) 2.8 K/uL (1.8-7.7); PLATELET COUNT (AUTO) 279 K/uL (130-430); RED BLOOD CELL COUNT(AUTO) 3.69 MIL/uL (4.2-6.2); RED CELL DISTRIBUTION WIDTH 25.2 % (9.0-15.0); WHITE BLOOD COUNT (AUTO) 3.2 K/uL (4.8-10.8)
[2022-06-10] MEDS: NACL 0.9% 1,000 ML IV SCH (06:20)
[2022-06-10] MEDS: PIPERACILLIN/TAZO 2.25G/DEX-IS 50 ML IV SCH ×5 (06:20→23:57)
[2022-06-10 06:42] LABS: C-REACTIVE PROTEIN QUANT 11.8 mg/dL (0-0.5); CALCIUM 8.3 mg/dL (8.4-11.0); CREATININE 0.31 mg/dL (0.55-1.30); POTASSIUM 3.2 mmol/L (3.5-5.1)
[2022-06-10] MEDS: ENOXAPARIN SODIUM 40 MG/0.4 ML SYRINGE SUBCUT SCH (08:07)
[2022-06-10] MEDS: PANTOPRAZOLE SODIUM 40 MG/VIAL (PROTONIX) IVP SCH (08:08)
[2022-06-10] MEDS: DECADRON 4 MG TABLET PO SCH (08:08)
[2022-06-10] MEDS: CHOLECALCIFEROL (VITAMIN D3) 2,000 UNIT TABLET PO SCH (08:08)
[2022-06-10] MEDS: AZITHROMYCIN 250 MG TABLET PO SCH (08:08)
[2022-06-10] MEDS: ASCORBIC ACID 500 MG TABLET PO SCH (08:08)
[2022-06-10 10:30] LABS: ERYTHROCYTE SEDIMENTATION RATE 65 MM/HR (0-20)
[2022-06-10] MEDS: POTASSIUM CHLORIDE 20 MEQ TAB.PRT.SR PO PRN (10:53)
[2022-06-10 11:08] LABS: INR 1.2 (0.8-1.2); PROTHROMBIN TIME 11.9 SECS (9.5-12.5)
[2022-06-11] VITALS (30 sets, daily range): BP systolic 94–167
[2022-06-11] MEDS: NACL 0.9% 1,000 ML IV SCH ×2 (05:17→05:36)
[2022-06-11] MEDS: PIPERACILLIN/TAZO 2.25G/DEX-IS 50 ML IV SCH ×3 (05:33→17:04)
[2022-06-11 06:44] LABS: BASOPHILS % (AUTO) 0.1 % (0.0-2.0); EOSINOPHILS % (AUTO) 0.1 % (0.0-4.0); HEMATOCRIT 23.6 % (36-48); HEMOGLOBIN 7.7 g/dL (12.0-16.0); LYMPHOCYTES # (AUTO) 0.4 K/uL (1.0-5.5); LYMPHOCYTES % (AUTO) 12.5 % (20.5-51.5); MEAN CORPUSCULAR HEMOGLOBIN 21 pg (27-31); MEAN CORPUSCULAR HGB CONC 33 % (32-36); MEAN CORPUSCULAR VOLUME 65 fL (79.0-98.0); MONOCYTES # (AUTO) 0.3 K/uL (0.0-1.0); MONOCYTES % (AUTO) 10.8 % (1.7-9.3); NEUTROPHILS # (AUTO) 2.3 K/uL (1.8-7.7); NEUTROPHILS % (AUTO) 76.5 % (40.0-70.0); PLATELET COUNT (AUTO) 270 K/uL (130-430); RED BLOOD CELL COUNT(AUTO) 3.66 MIL/uL (4.2-6.2)
[2022-06-11 07:09] LABS: C-REACTIVE PROTEIN QUANT 4.3 mg/dL (0-0.5); CREATININE 0.26 mg/dL (0.55-1.30)
[2022-06-11 08:01] LABS: POTASSIUM 2.8 mmol/L (3.5-5.1)
[2022-06-11 08:18] LABS: RED CELL DISTRIBUTION WIDTH 24.8 % (9.0-15.0)
[2022-06-11] MEDS: AZITHROMYCIN 250 MG TABLET PO SCH (08:44)
[2022-06-11] MEDS: DECADRON 4 MG TABLET PO SCH (08:44)
[2022-06-11] MEDS: CHOLECALCIFEROL (VITAMIN D3) 2,000 UNIT TABLET PO SCH (08:44)
[2022-06-11] MEDS: POTASSIUM CHLORIDE 20 MEQ TAB.PRT.SR PO PRN (08:44)
[2022-06-11] MEDS: ASCORBIC ACID 500 MG TABLET PO SCH (08:44)
[2022-06-11] MEDS: PANTOPRAZOLE SODIUM 40 MG/VIAL (PROTONIX) IVP SCH (08:45)
[2022-06-11] MEDS: ENOXAPARIN SODIUM 40 MG/0.4 ML SYRINGE SUBCUT SCH (08:45)
[2022-06-11] MEDS: PROPOFOL DRIP 100 ML IV PRN (10:55)
[2022-06-11] MEDS ORDERED: NACL 0.9% 1,000 ML IV ONE (10:55)
[2022-06-11] MEDS ORDERED: ETOMIDATE 20 MG/ 10 ML VIAL (AMIDATE) IVP ONE (10:55)
[2022-06-11] MEDS ORDERED: PROPOFOL DRIP 100 ML IV ONE (10:55)
[2022-06-11 11:11] LABS: ERYTHROCYTE SEDIMENTATION RATE 46 MM/HR (0-20)
[2022-06-11] MEDS ORDERED: ROCURONIUM BROMIDE 10 MG/ML (ZEMURON) IV ONE (11:15)
[2022-06-11] MEDS: IPRATROPIUM/ALBUTEROL SULFATE 3 ML AMPUL.NEB (DUONEB) INH SCH (13:51)
[2022-06-11] MEDS ORDERED: TOCILIZUMAB 400 MG in NS 100 ML IV ONE (15:00)
[2022-06-12] VITALS (26 sets, daily range): BP systolic 112–161
[2022-06-12] MEDS: PIPERACILLIN/TAZO 2.25G/DEX-IS 50 ML IV SCH ×4 (00:01→18:19)
[2022-06-12] MEDS: PROPOFOL DRIP 100 ML IV PRN (06:37)
[2022-06-12 06:49] LABS: BASOPHILS % (AUTO) 0.2 % (0.0-2.0); EOSINOPHILS % (AUTO) 0.1 % (0.0-4.0); HEMATOCRIT 23.8 % (36-48); HEMOGLOBIN 7.8 g/dL (12.0-16.0); LYMPHOCYTES # (AUTO) 0.5 K/uL (1.0-5.5); LYMPHOCYTES % (AUTO) 13.6 % (20.5-51.5); MEAN CORPUSCULAR HEMOGLOBIN 21 pg (27-31); MEAN CORPUSCULAR HGB CONC 33 % (32-36); MEAN CORPUSCULAR VOLUME 65 fL (79.0-98.0); MONOCYTES # (AUTO) 0.4 K/uL (0.0-1.0); NEUTROPHILS # (AUTO) 2.7 K/uL (1.8-7.7); NEUTROPHILS % (AUTO) 75.1 % (40.0-70.0); PLATELET COUNT (AUTO) 262 K/uL (130-430); RED BLOOD CELL COUNT(AUTO) 3.69 MIL/uL (4.2-6.2); RED CELL DISTRIBUTION WIDTH 25.2 % (9.0-15.0); WHITE BLOOD COUNT (AUTO) 3.6 K/uL (4.8-10.8)
[2022-06-12 07:00] LABS: C-REACTIVE PROTEIN QUANT 2.2 mg/dL (0-0.5); CALCIUM 8.4 mg/dL (8.4-11.0); CREATININE 0.27 mg/dL (0.55-1.30)
[2022-06-12 07:04] LABS: POTASSIUM 2.8 mmol/L (3.5-5.1)
[2022-06-12] MEDS: PANTOPRAZOLE SODIUM 40 MG/VIAL (PROTONIX) IVP SCH (08:20)
[2022-06-12] MEDS: CHOLECALCIFEROL (VITAMIN D3) 2,000 UNIT TABLET PO SCH (08:21)
[2022-06-12] MEDS: ASCORBIC ACID 500 MG TABLET PO SCH (08:21)
[2022-06-12] MEDS: AZITHROMYCIN 250 MG TABLET PO SCH (08:22)
[2022-06-12] MEDS: ENOXAPARIN SODIUM 40 MG/0.4 ML SYRINGE SUBCUT SCH (08:22)
[2022-06-12] MEDS: POTASSIUM CHLORIDE 20 MEQ TAB.PRT.SR PO PRN (08:23)
[2022-06-12 10:50] LABS: ERYTHROCYTE SEDIMENTATION RATE 34 MM/HR (0-20)
[2022-06-12] MEDS: DECADRON 4 MG TABLET PO SCH (11:35)
[2022-06-12] MEDS: IPRATROPIUM/ALBUTEROL SULFATE 3 ML AMPUL.NEB (DUONEB) INH SCH ×3 (13:00→23:41)
[2022-06-12] MEDS ORDERED: POTASSIUM CHLORIDE 20 MEQ/PKT PACKET PO ONE (15:30)
[2022-06-12] MEDS: NACL 0.9% 1,000 ML IV SCH (18:19)
[2022-06-13] VITALS (28 sets, daily range): BP systolic 105–149
[2022-06-13] MEDS: PIPERACILLIN/TAZO 2.25G/DEX-IS 50 ML IV SCH ×2 (00:01→05:33)
[2022-06-13] MEDS: PROPOFOL DRIP 100 ML IV PRN (01:19)
[2022-06-13] MEDS: IPRATROPIUM/ALBUTEROL SULFATE 3 ML AMPUL.NEB (DUONEB) INH SCH ×4 (04:28→20:24)
[2022-06-13 06:52] LABS: C-REACTIVE PROTEIN QUANT 0.2 mg/dL (0-0.5); CALCIUM 8.2 mg/dL (8.4-11.0); CREATININE 0.32 mg/dL (0.55-1.30)
[2022-06-13 07:11] LABS: BASOPHILS % (AUTO) 0.1 % (0.0-2.0); EOSINOPHILS % (AUTO) 1.2 % (0.0-4.0); HEMATOCRIT 23.6 % (36-48); HEMOGLOBIN 7.8 g/dL (12.0-16.0); LYMPHOCYTES # (AUTO) 0.6 K/uL (1.0-5.5); MEAN CORPUSCULAR HEMOGLOBIN 21 pg (27-31); MEAN CORPUSCULAR HGB CONC 33 % (32-36); MEAN CORPUSCULAR VOLUME 65 fL (79.0-98.0); MONOCYTES # (AUTO) 0.5 K/uL (0.0-1.0); MONOCYTES % (AUTO) 16.1 % (1.7-9.3); NEUTROPHILS # (AUTO) 1.8 K/uL (1.8-7.7); NEUTROPHILS % (AUTO) 62.6 % (40.0-70.0); PLATELET COUNT (AUTO) 272 K/uL (130-430); RED BLOOD CELL COUNT(AUTO) 3.66 MIL/uL (4.2-6.2); RED CELL DISTRIBUTION WIDTH 24.8 % (9.0-15.0); WHITE BLOOD COUNT (AUTO) 2.9 K/uL (4.8-10.8)
[2022-06-13 08:14] LABS: POTASSIUM 2.9 mmol/L (3.5-5.1)
[2022-06-13] MEDS: ASCORBIC ACID 500 MG TABLET PO SCH (08:40)
[2022-06-13] MEDS: ENOXAPARIN SODIUM 40 MG/0.4 ML SYRINGE SUBCUT SCH (08:40)
[2022-06-13] MEDS: POTASSIUM CHLORIDE 20 MEQ TAB.PRT.SR PO PRN (08:40)
[2022-06-13] MEDS: AZITHROMYCIN 250 MG TABLET PO SCH (08:40)
[2022-06-13] MEDS: PANTOPRAZOLE SODIUM 40 MG/VIAL (PROTONIX) IVP SCH (08:40)
[2022-06-13] MEDS: DECADRON 4 MG TABLET PO SCH (08:41)
[2022-06-13] MEDS ORDERED: POTASSIUM CHLORIDE 20 MEQ/PKT PACKET GT ONE (08:45)
[2022-06-13] MEDS: CHOLECALCIFEROL (VITAMIN D3) 2,000 UNIT TABLET PO SCH (08:46)
[2022-06-13 09:47] LABS: ERYTHROCYTE SEDIMENTATION RATE 29 MM/HR (0-20)
[2022-06-13] MEDS: NACL 0.9% 1,000 ML IV SCH (11:29)
[2022-06-13] MEDS: MEROPENEM 500 MG in NS 50 ML IV SCH ×2 (13:11→21:09)
[2022-06-14] VITALS (20 sets, daily range): BP systolic 99–150
[2022-06-14] MEDS: IPRATROPIUM/ALBUTEROL SULFATE 3 ML AMPUL.NEB (DUONEB) INH SCH ×4 (01:11→19:47)
[2022-06-14] MEDS: MEROPENEM 500 MG in NS 50 ML IV SCH ×3 (05:34→22:41)
[2022-06-14 06:31] LABS: BASOPHILS % (AUTO) 0.2 % (0.0-2.0); EOSINOPHILS % (AUTO) 0.7 % (0.0-4.0); HEMATOCRIT 23.3 % (36-48); HEMOGLOBIN 7.7 g/dL (12.0-16.0); LYMPHOCYTES # (AUTO) 0.9 K/uL (1.0-5.5); LYMPHOCYTES % (AUTO) 17.7 % (20.5-51.5); MEAN CORPUSCULAR HEMOGLOBIN 21 pg (27-31); MEAN CORPUSCULAR HGB CONC 33 % (32-36); MEAN CORPUSCULAR VOLUME 64 fL (79.0-98.0); MONOCYTES # (AUTO) 0.6 K/uL (0.0-1.0); MONOCYTES % (AUTO) 11.2 % (1.7-9.3); NEUTROPHILS # (AUTO) 3.6 K/uL (1.8-7.7); NEUTROPHILS % (AUTO) 70.2 % (40.0-70.0); PLATELET COUNT (AUTO) 260 K/uL (130-430); RED BLOOD CELL COUNT(AUTO) 3.62 MIL/uL (4.2-6.2); RED CELL DISTRIBUTION WIDTH 24.8 % (9.0-15.0); WHITE BLOOD COUNT (AUTO) 5.2 K/uL (4.8-10.8)
[2022-06-14 06:57] LABS: CALCIUM 7.9 mg/dL (8.4-11.0); CREATININE 0.29 mg/dL (0.55-1.30); POTASSIUM 3.1 mmol/L (3.5-5.1)
[2022-06-14] MEDS: PANTOPRAZOLE SODIUM 40 MG/VIAL (PROTONIX) IVP SCH (08:53)
[2022-06-14] MEDS: DECADRON 4 MG TABLET PO SCH (08:54)
[2022-06-14] MEDS: CHOLECALCIFEROL (VITAMIN D3) 2,000 UNIT TABLET PO SCH (08:54)
[2022-06-14] MEDS: ASCORBIC ACID 500 MG TABLET PO SCH (08:54)
[2022-06-14] MEDS: ENOXAPARIN SODIUM 40 MG/0.4 ML SYRINGE SUBCUT SCH (08:56)
[2022-06-14] MEDS ORDERED: MEROPENEM 500 MG VIAL IV ONE (22:34)
[2022-06-15] MEDS ORDERED: MEROPENEM 500 MG VIAL IV ONE (00:36)
[2022-06-15 04:00] VITALS: BP_SYST 132
[2022-06-15] MEDS: MEROPENEM 500 MG in NS 50 ML IV SCH ×3 (05:27→21:34)
[2022-06-15] MEDS: IPRATROPIUM/ALBUTEROL SULFATE 3 ML AMPUL.NEB (DUONEB) INH SCH ×4 (05:29→20:22)
[2022-06-15 08:00] VITALS: BP_SYST 142
[2022-06-15] MEDS: PANTOPRAZOLE SODIUM 40 MG/VIAL (PROTONIX) IVP SCH (09:03)
[2022-06-15] MEDS: ENOXAPARIN SODIUM 40 MG/0.4 ML SYRINGE SUBCUT SCH (09:04)
[2022-06-15] MEDS: ASCORBIC ACID 500 MG TABLET PO SCH (09:04)
[2022-06-15] MEDS: CHOLECALCIFEROL (VITAMIN D3) 2,000 UNIT TABLET PO SCH (09:04)
[2022-06-15] MEDS: DECADRON 4 MG TABLET PO SCH (09:04)
[2022-06-15] MEDS: BALSAM PERU/CASTOR OIL 56.7 GM OINT...G. TP SCH (09:05)
[2022-06-15 10:33] LABS: CALCIUM 8.5 mg/dL (8.4-11.0); CREATININE 0.27 mg/dL (0.55-1.30)
[2022-06-15 10:53] LABS: POTASSIUM 2.7 mmol/L (3.5-5.1)
[2022-06-15 11:35] VITALS: BP_SYST 129
[2022-06-15] MEDS: POTASSIUM CHLORIDE 20 MEQ TAB.PRT.SR PO PRN ×2 (12:28→16:35)
[2022-06-15 16:14] VITALS: BP_SYST 126
[2022-06-15 20:00] VITALS: BP_SYST 119
[2022-06-16 00:25] VITALS: BP_SYST 147
[2022-06-16] MEDS: IPRATROPIUM/ALBUTEROL SULFATE 3 ML AMPUL.NEB (DUONEB) INH SCH ×2 (02:10→07:12)
[2022-06-16 04:00] VITALS: BP_SYST 132
[2022-06-16] MEDS: MEROPENEM 500 MG in NS 50 ML IV SCH (05:28)
[2022-06-16 06:30] LABS: BASOPHILS % (AUTO) 0.1 % (0.0-2.0); EOSINOPHILS % (AUTO) 0.1 % (0.0-4.0); HEMATOCRIT 25.7 % (36-48); HEMOGLOBIN 8.5 g/dL (12.0-16.0); LYMPHOCYTES % (AUTO) 9.8 % (20.5-51.5); MEAN CORPUSCULAR HEMOGLOBIN 21 pg (27-31); MEAN CORPUSCULAR HGB CONC 33 % (32-36); MEAN CORPUSCULAR VOLUME 64 fL (79.0-98.0); MONOCYTES # (AUTO) 1.1 K/uL (0.0-1.0); MONOCYTES % (AUTO) 10.6 % (1.7-9.3); NEUTROPHILS % (AUTO) 79.4 % (40.0-70.0); PLATELET COUNT (AUTO) 305 K/uL (130-430); RED BLOOD CELL COUNT(AUTO) 4.02 MIL/uL (4.2-6.2); RED CELL DISTRIBUTION WIDTH 25.7 % (9.0-15.0)
[2022-06-16 06:44] LABS: CALCIUM 8.5 mg/dL (8.4-11.0); CREATININE 0.23 mg/dL (0.55-1.30); POTASSIUM 3.3 mmol/L (3.5-5.1)
[2022-06-16] MEDS: PANTOPRAZOLE SODIUM 40 MG/VIAL (PROTONIX) IVP SCH (08:48)
[2022-06-16] MEDS: DECADRON 4 MG TABLET PO SCH (08:48)
[2022-06-16] MEDS: ASCORBIC ACID 500 MG TABLET PO SCH (08:48)
[2022-06-16] MEDS: ENOXAPARIN SODIUM 40 MG/0.4 ML SYRINGE SUBCUT SCH (08:48)
[2022-06-16] MEDS: CHOLECALCIFEROL (VITAMIN D3) 2,000 UNIT TABLET PO SCH (08:48)
[2022-06-16] MEDS: BALSAM PERU/CASTOR OIL 56.7 GM OINT...G. TP SCH (08:49)
[2022-06-16 09:08] VITALS: BP_SYST 112
[2022-06-16 09:18] VITALS: BP_SYST 112
[2022-06-16] MEDS ORDERED: MEROPENEM 500 MG in NS 50 ML IV ONE (12:00)
[2022-06-16 12:12] VITALS: BP_SYST 117
[2022-06-16] MEDS: POTASSIUM CHLORIDE 20 MEQ TAB.PRT.SR PO PRN (12:25)
[2022-06-16 12:31] VITALS: BP_SYST 118
== END 2022-06-16 12:50 | DRG 208 ==
LOC: SED 05:31 → SMU 08:41 → SIC 10:40 → STU 06-14 16:42
PROVIDERS: ADMIT General Practice; ATTEND General Practice
PROC: XW033H5 Introduction of Tocilizumab into Peripheral Vein, Percutaneous Approach, New Technology Group 5 (ICD-10-PCS; 2022-06-09)
PROC: 5A09357 Assistance with Respiratory Ventilation, Less than 24 Consecutive Hours, Continuous Positive Airway Pressure (ICD-10-PCS; 2022-06-09)
PROC: 0B9H8ZX Drainage of Lung Lingula, Via Natural or Artificial Opening Endoscopic, Diagnostic (ICD-10-PCS; principal; 2022-06-11)
PROC: 0B9D8ZX Drainage of Right Middle Lung Lobe, Via Natural or Artificial Opening Endoscopic, Diagnostic (ICD-10-PCS; 2022-06-11)
PROC: 0BH17EZ Insertion of Endotracheal Airway into Trachea, Via Natural or Artificial Opening (ICD-10-PCS; 2022-06-11)
PROC: 5A1945Z Respiratory Ventilation, 24-96 Consecutive Hours (ICD-10-PCS; 2022-06-11)
DX: J69.0 Pneumonitis due to inhalation of food and vomit (principal); J96.21 Acute and chronic respiratory failure with hypoxia; E44.0 Moderate protein-calorie malnutrition; E87.2 Acidosis; D68.59 Other primary thrombophilia; Z16.19 Resistance to other specified beta lactam antibiotics; N17.9 Acute kidney failure, unspecified; Z16.24 Resistance to multiple antibiotics; N39.0 Urinary tract infection, site not specified; J15.0 Pneumonia due to Klebsiella pneumoniae; D63.8 Anemia in other chronic diseases classified elsewhere; E86.0 Dehydration; G40.909 Epilepsy, unspecified, not intractable, without status epilepticus; E87.6 Hypokalemia; I48.91 Unspecified atrial fibrillation; R13.10 Dysphagia, unspecified; Z20.822 Contact with and (suspected) exposure to COVID-19; Z66 Do not resuscitate; J40 Bronchitis, not specified as acute or chronic; B96.4 Proteus (mirabilis) (morganii) as the cause of diseases classified elsewhere; R62.7 Adult failure to thrive; K21.9 Gastro-esophageal reflux disease without esophagitis; Z68.22 Body mass index [BMI] 22.0-22.9, adult; Z74.01 Bed confinement status; Z86.73 Personal history of transient ischemic attack (TIA), and cerebral infarction without residual deficits; Z87.01 Personal history of pneumonia (recurrent); Z93.1 Gastrostomy status; Z51.5 Encounter for palliative care
CPT/HCPCS: 0241U; 36415; 36600; 70450-TC; 71045; 71275; 76376; 80048; 80053; 81000; 82803-TC; 83605; 83735; 83880; 84484; 85025; 85379; 85610-TC; 85651-TC; 85730-TC; 86140; 87040; 87070-TC; 87081; 87086; 87205-TC; 93005; 94002; 94003; 94640; 94660; 94760; 96365; 96366; 96367; 96368; 96375; 99291; C9113; G0378; J0696; J1580; J1650; J1953; J2185; J2310; J2543; J2704; J3262; J3370; J7050; J8540; Q0144; Q9967; U0003

== ENCOUNTER 2022-07-07 22:05 | Inpatient (IN) | payer OTHER, MEDICAID ==
[~2022-07-07] VITALS: Ht 152.4 cm; Wt 58.1 kg
[~2022-07-07 22:05] MED LIST changes: +ACET325T53 GT; -ACET325T53 PR
[2022-07-07 22:12] VITALS: BP_SYST 111
--- NOTE | 2022-07-07 22:17 | NUR ---
PATIENT BIBA FOR HYPOXIA AT [facility]. PATIENT CURRENTLY BEING TREATED FOR PNA. UPON ARRIVAL, PATIENT PLACED ON BIPAP AND RT PRESENT. DR. COLE AT BEDSIDE WITH RN'S. UPON ARRIVAL OF EMS, PATIENT WAS SATTING AT 68% ON 15L NONREBREATHER.
--- NOTE | 2022-07-07 22:20 | NUR ---
PT ARRIVED ON NRB AT 15L O2 SAT AT 60%. PT ARRIVED WITH PICC LINE, G-TUBE, AND LUONG IN PLACE. BLOOD GLUCOSE 100. 76% ON BIPAP. RT AT BEDSIDE.
--- NOTE | 2022-07-07 22:23 | NUR ---
MRSA AND COVID HANDY SWABS OBTAINED AND SENT TO THE LAB.
[2022-07-07] MEDS ORDERED: IPRATROPIUM BROM 0.5 MG/2.5 ML VIAL.NEB (ATROVENT) INH ONE (22:27)
[2022-07-07] MEDS ORDERED: ALBUTEROL SULFATE 0.083% 2.5 MG/3 ML VIAL.NEB INH ONE (22:27)
[2022-07-07] MEDS ORDERED: NS 1000 ML IV.SOLN IV ONE (22:45)
[2022-07-07] MEDS ORDERED: CLINDAMYCIN 300 MG in D5W 50 ML IV ONE (22:45)
--- NOTE | 2022-07-07 22:48 | NUR ---
X-ray being done at bedside.
[2022-07-07] MEDS ORDERED: CLINDAMYCIN 900 mg/50mL D5W 50 ML IV ONE ×2 (23:04→23:30)
--- NOTE | 2022-07-07 23:24 | NUR ---
URINE SAMPLE OBTAINED AND SENT TO LAB.
[2022-07-07 23:44] LABS: EOSINOPHILS # (AUTO) 0.3 K/uL (0.0-0.4); HEMOGLOBIN 8.3 g/dL (12.0-16.0); MEAN CORPUSCULAR HEMOGLOBIN 21 pg (27-31); MEAN CORPUSCULAR HGB CONC 32 % (32-36); MONOCYTES # (AUTO) 0.4 K/uL (0.0-1.0); NEUTROPHILS # (AUTO) 1.8 K/uL (1.8-7.7); WHITE BLOOD COUNT (AUTO) 3.1 K/uL (4.8-10.8)
[2022-07-07 23:48] LABS: BASOPHILS % (AUTO) 0.3 % (0.0-2.0); EOSINOPHILS % (AUTO) 9.1 % (0.0-4.0); HEMATOCRIT 25.7 % (36-48); LYMPHOCYTES # (AUTO) 0.7 K/uL (1.0-5.5); LYMPHOCYTES % (AUTO) 21.4 % (20.5-51.5); MEAN CORPUSCULAR VOLUME 65 fL (79.0-98.0); MONOCYTES % (AUTO) 11.6 % (1.7-9.3); NEUTROPHILS % (AUTO) 57.6 % (40.0-70.0); PLATELET COUNT (AUTO) 119 K/uL (130-430); RED BLOOD CELL COUNT(AUTO) 3.96 MIL/uL (4.2-6.2); RED CELL DISTRIBUTION WIDTH 22.3 % (9.0-15.0)
[2022-07-07 23:55] LABS: ANION GAP 4 (5-15); CALCIUM 7.2 mg/dL (8.4-11.0); CHLORIDE 113 mmol/L (98-107); GLUCOSE 94 mg/dL (70-99); SODIUM SERUM 148 mmol/L (136-145); UREA NITROGEN, BLOOD 16 mg/dL (8-21)
[2022-07-08] VITALS (23 sets, daily range): BP systolic 104–155
[2022-07-08] LABS: CREATININE < 0.20 mg/dL (0.55-1.30); GFR AFRICAN AMERICAN 452 mL/min (>90); POTASSIUM 2.6 mmol/L (3.5-5.1)
[2022-07-08 00:05] LABS: ALANINE AMINOTRANSFERASE 31 U/L (12-78); ALBUMIN 2.6 g/dL (3.4-4.8); ASPARTATE AMINOTRANSFERASE 30 U/L (10-37); TOTAL BILIRUBIN 0.8 mg/dL (0.0-1.0)
[2022-07-08 00:12] LABS: BILIRUBIN,URINE NEGATIVE (NEGATIVE); BLOOD, URINE 3+ (NEGATIVE); CLARITY/URINE CLEAR (CLEAR); GLUCOSE,URINE NEGATIVE (NEGATIVE); KETONES,URINE NEGATIVE (NEGATIVE); LEUKOCYTE ESTERASE ,URINE 1+ (NEGATIVE); NITRITE, URINE POSITIVE (NEGATIVE); PROTEIN URINE 2+ (NEGATIVE)
[2022-07-08 00:16] LABS: COLOR,URINE RED (YELLOW)
[2022-07-08] MEDS ORDERED: LEVE100S GT (00:16)
[2022-07-08] MEDS ORDERED: ZINC50TA69 GT (00:19)
[2022-07-08] MEDS ORDERED: AMIN30LI2 GT (00:20)
[2022-07-08] MEDS ORDERED: CHLO473M5 PO (00:21)
[2022-07-08] MEDS ORDERED: ASCO500T20 GT (00:22)
--- NOTE | 2022-07-08 00:22 | NUR ---
Medication reconciliation completed with information provided by [facility]. Any prior medication reconciliation on file was reviewed and corrected.
[2022-07-08] MEDS ORDERED: KCL 10 mEq in 50 mL (PREMIX) 50 ML IV ONE ×3 (00:30)
[2022-07-08 00:52] LABS: RBC,URINE >100 /HPF (0-3)
[2022-07-08 00:53] LABS: BACTERIA,URINE FEW /HPF (None Seen)
[2022-07-08 00:54] LABS: MUCUS,URINE None Seen /LPF (None Seen)
--- NOTE | 2022-07-08 00:55 | NUR ---
RT bedside to titrate BiPap from 100% FIO2 to 60% FIO2. Per doctors order.
--- NOTE | 2022-07-08 01:00 | NUR ---
PT to CT via barbara. Accompanied by radiation officer, RT and RN.
--- NOTE | 2022-07-08 01:19 | NUR ---
PT back from CT via r[place]ashua. Accompanied by radiation protection specialist, RT and RN.
[2022-07-08] MEDS ORDERED: KCL 20 mEq in 100 mL (PREMIX) 100 ML IV ONE (02:00)
[2022-07-08] MEDS ORDERED: IPRATROPIUM/ALBUTEROL SULFATE 3 ML AMPUL.NEB (DUONEB) INH PRN (02:15)
--- NOTE | 2022-07-08 02:18 | NUR ---
RT at bedside for trach naso suctioning. PT tolerating well.
--- NOTE | 2022-07-08 02:26 | NUR ---
Admit bed requested Patient will be admitted to care of Admitted to ICU unit. Diagnosis Acute Respiratory Failure Inpatient (Yes or No) yes Observation (Yes or No) no Orientation concerns or request close to nursing station (Yes or No) yes Covid Status negative On vent or bipap yes Isolation requirements no Needs a sitter yes From Home (Yes or if No enter name of facility) No, [facility] Requires Dialysis (Yes or No) no Med Rec Completed (Yes of No) yes
--- NOTE | 2022-07-08 02:30 | NUR ---
RT AT BEDSIDE TO TIRTATE BIPAP DOWN PER MD ORDER. BIPAP AT 50% FIO2 AT THIS MOMENT. PT TOLERATIN WELL O2 SAT AT 100%.
[2022-07-08] MEDS: NACL 0.9% 1,000 ML IV SCH ×2 (03:45→15:55)
--- NOTE | 2022-07-08 03:45 | NUR ---
Patient will be admitted to care of Dr. March. Admitted to ICU unit. Will go to room 7. Belongings list completed. Complete and up to date summary report printed. SBAR report given to Tiffany HORNE at bedside with opportunity for questions.
[2022-07-08] MEDS ORDERED: PIPERACILLIN/TAZO 3.375 GM in NS 50 ML IV SCH (06:00)
--- NOTE | 2022-07-08 06:00 | NUR ---
0345--PT IS NEW ADMIT FROM ER. PT CAME FROM SNF. PT IS NON-VERBAL BUT SEEMS ALERT AND SLIGHT RESTLESS. PT IS ON 6L/N OXYMISER. RTX HAS RON AT BEDSIDE. POX HAS BEEN 95-99%. PT HAD CT-SCAN OF CHEST AND HEAD. LARGE AMT OF THICK SPUT DEEP SX BY RTX IN ER DUE TO LARGE AMT SEEN VIA CT-SCAN. PT HAS BEEN IN A.FIB. PT HAS NS @70CC/HR VIA R.ARM PICC-LINE. PT HAS LARGE SACRAL DECUB-RED IN COLOR. PICTURES TAKEN. W/D-DRSG DONE. MRSA SWAB SENT IN ER. PT GIVEN #2 RIDER OF KCL 20MEQ IVPB. PT ENDORSED TO DAYSHIFT RN IN STABLE/GUARDED. ABELINO HORNE
--- NOTE | 2022-07-08 06:00 | NUR ---
CONSULTATION PAGED/CALLED Reason for Consultation: Respiratory Failure Person Who was Notified: sharda Medina Consulting Physician: Dr Ellis Sludge Filtration Operator Specialty: Pulmo Ordering Physician: Dr March
--- NOTE | 2022-07-08 06:00 | NUR ---
FURTHER NOTE: PT HAS F/C WITH 900CC OUT-SLIGHT BLD-TINGED/MATTY. PT HAS HX OF ESBL IN URINE. ENDORSED TO NIKKI HORNE. ABELINO HORNE
--- NOTE | 2022-07-08 07:15 | NUR ---
Received report from hourly shift RN, and assumed patient care.
[2022-07-08] MEDS: PIPERACILLIN/TAZO 3.375 GM in NS 50 ML IV SCH ×3 (07:54→20:20)
--- NOTE | 2022-07-08 08:15 | NUR ---
Dr. March at bedside, MD is aware of patient's elevated sodium level of 148, potassium of 2.6, the need for parada catheter order. MD will place orders [facility], and is OK with elevated sodium level and to call if greater than 150, no additional orders noted at the moment and will reinforce if needed throughout the shift.
[2022-07-08] MEDS ORDERED: MORPHINE 2 MG/ML INJ. SYRINGE IVP PRN ×2 (08:30)
[2022-07-08] MEDS ORDERED: MUPIROCIN 2% TOPICAL OINTMENT 22 GM NS PRN (08:30)
[2022-07-08] MEDS ORDERED: MAGNESIUM SULFATE 50 ML IV PRN (08:30)
[2022-07-08] MEDS ORDERED: ONDANSETRON HCL 4 MG/2 ML VIAL IVP PRN (08:30)
[2022-07-08] MEDS ORDERED: LORazepam 1 MG TABLET GT PRN (08:30)
[2022-07-08] MEDS ORDERED: ACETAMINOPHEN 325 MG TABLET PO PRN (08:30)
[2022-07-08] MEDS ORDERED: NALOXONE HCL 0.4 MG/ML AMP (NARCAN) IVP PRN ×2 (08:30)
[2022-07-08] MEDS ORDERED: DOCUSATE SODIUM 100 MG CAPSULE PO PRN (08:30)
[2022-07-08 09:02] LABS: CREATININE 0.24 mg/dL (0.55-1.30); POTASSIUM 3.4 mmol/L (3.5-5.1)
--- NOTE | 2022-07-08 09:05 | NUR ---
NOTIFIED OF CONSULT ORDERING PHY: DR. SCOTT REASON FOR CONSULT: ASP PNA DIALED: [phone] SPOKE TO: DADA
[2022-07-08] MEDS: LevETIRAcetam 500 MG/5 ML UDC ORAL LIQUID GT SCH ×2 (09:31→20:22)
[2022-07-08] MEDS: roPINIRole HCL 0.25 MG ( REQUIP )TABLET GT SCH (09:31)
[2022-07-08] MEDS: APIXABAN 2.5 MG TABLET GT SCH ×2 (09:32→20:20)
[2022-07-08] MEDS: ASCORBIC ACID 500 MG TABLET GT SCH (09:32)
[2022-07-08] MEDS: GABAPENTIN 300 MG CAPSULE GT SCH ×2 (09:32→20:23)
[2022-07-08] MEDS: FERROUS SULFATE 300 MG/5 ML UDC GT SCH (09:32)
[2022-07-08] MEDS: METOPROLOL TARTRATE 25 MG TABLET GT SCH ×2 (09:34→20:23)
--- NOTE | 2022-07-08 12:50 | NUR ---
Patient's daughter (Sho) called for condition updates, provided nursing updates and had no further questions noted at the end of the conversation. Will reinforce if needed throughout the shift.
--- NOTE | 2022-07-08 13:10 | NUR ---
Dr. Ellis rounded at bedside, provided nursing updates, and no new orders noted at the moment. MD is aware of abnormal electrolytes (please see EMR for further details), no new orders noted at the moment. Will reinforce if needed throughout the shift.
--- NOTE | 2022-07-08 14:18 | NUR ---
Wound care nurse (Berry) at bedside, provided wound care, patient was able to tolerate the big turns. No complications noted during the wound care, will reinforce if needed throughout the shift.
--- NOTE | 2022-07-08 14:18 | NUR ---
WOUND EVALUATION: Late note for 1418 secondary to patient care. Wound Consult received from Dr. March. Thank you, Dr. March, for the consult. Patient received in a [place] Bed with an Isoflex EDMOND mattress, nonverbal, nonresponsive to verbal commands. Patient has bilateral knee and hip flexion contractures, and is unable to turn in bed independently. Lavelle Score is a 12. Past Medical History: Subarachnoid Hemorrhage, bedbound, Stroke/Subarachnoid Hemorrhage, on G-tube feedings, Neuropathy, Anemia, recurrent Pneumonias, GERD, Dysphagia, Seizure disorder, COVID Pneumonia, AFib. Patient was recently hospitalized for respiratory failure. Recent Labs: WBC 3.1, RBC 3.96, hemoglobin 8.3, hematocrit 25.7, platelets 119, sodium 146, potassium 3.4, chloride 112, BUN 11, creatinine 0.24, GFR 302, glucose 93, albumin 2.6. Microbiology: Urine culture results in progress. MRSA screen results in progress. Blood culture results x2 in progress. Intrinsic factors that delay wound healing: Subarachnoid Hemorrhage, Hypoalbuminemia. Extrinsic factors that delay wound healing: Immobility, scar tissue. Wound Assessment: 1. Sacral area: Stage IV pressure ulcer, present on admission. Wound bed has 5% yellow slough, 95% red tissue. No odor, periwound pink with undermining from 10-5 o'clock (1.3 cm at 12 o'clock; 1.5 cm at 3 o'clock; 1.0 cm at 6 o;o'clock; 1.0 cm at 9 o;clock). Undermining present from 9-2 o'clock (1.4 cm at 9 o'clock; 3.0 cm at 12 o'clock; 1.6 cm at 3 o'clock). Measures 5.5 cm x 4.5 cm x 4.1 cm. Recommend: Cleanse wound with normal saline. Apply moisture barrier cream to giuseppe-wound. Apply Venelex ointment to wound bed. Pack wound with 1/2 inch iodoform packing strip. Cover with Sacral foam dressing. Perform wound care daily, and as needed for dressing soiling or dislodgement. 2. Right Posterior Proximal Thigh: Closed clear fluid-filled blister. No odor, no drainage. Recommend: Cover site with foam dressing for protection. Change dressing daily and as needed for dressing soiling or dislodgment. Reposition patient side to side only every 2 hours for offloading. 3. Right Anterior Medial Calf: Area of dark discoloration. Recommend: No dressing needed continue to monitor site every shift. Apply Calmoseptine cream to site daily. 4. Right Lateral Malleolus: Area of dark red/dark, non-blanchable discoloration, present on admission. No odor, no drainage. Recommend: Cover site with foam dressing. Elevate site with 1 pillow lengthwise under extremity at all times. Do not allow heels or bilateral ankle area sites to touch bed or other surfaces at any time. 5. Right Mid Foot, Dorsal aspect: Area of brown tissue/discoloration, present on admission. No odor, no drainage. Site measures 0.2 cm x 1.0 cm. 6. Left Distal Lateral Lower Extremity: Area of dark red discoloration, present on admission. Recommend: Cover sites with foam dressings. Do not allow feet or legs to touch bed, or other surfaces at any time. Also recommend: Reposition patient side to side only every 2 hours with 1 pillow underneath left pelvis and 1 pillow underneath right pelvis (facilitate turning by placing 1 pillow underneath left pelvis for 2 hours and switch pillow and place underneath right pelvis for 2 hours while maintaining original [address]). Off-load pressure areas with pillows for pressure re-distribution. Offload, elevate and float bilateral heels with 1 pillow lengthwise under each extremity. Perform skin care and monitor skin integrity Q shift. Use moisture cream on buttocks and other moisture susceptible areas QID and as needed for soiling. Place patient on a P500 low air-loss mattress.
[2022-07-08] MEDS: POTASSIUM CHLORIDE 20 MEQ TAB.PRT.SR PO PRN (15:15)
[2022-07-08] MEDS ORDERED: BALSAM PERU/CASTOR OIL 56.7 GM OINT...G. TP ONE (15:45)
--- NOTE | 2022-07-08 16:11 | NUR ---
CHG bath performed on patient, patient was able to tolerate the cleaning and the big turns. Will reinforce if needed throughout the shift.
--- NOTE | 2022-07-08 17:05 | NUR ---
Patient's family at bedside, no questions noted at the moment and will reinforce if needed throughout the shift.
--- NOTE | 2022-07-08 19:10 | NUR ---
Opening notes: Received bedside report from Nikky. Patient opens eyes and tracks but does not communicate A&Ox3. Patient is on 4 L oximiser, patient has G-tube with Jevity 1.5 at at 45 mL/hr. Patient has a parada cath that is patent. Skin issues on coccyx with mepilex dressing covering pictures where taken by day shift, and right lower buttocks intact blister. Patient has a SIERRA PICC with NS running at 70 mL/hr. Patient is A-Fib. Bed is at the lowest level, suction is working, brakes are locked, call light within reach.
[2022-07-09] VITALS (19 sets, daily range): BP systolic 96–153
[2022-07-09] MEDS: NACL 0.9% 1,000 ML IV SCH ×2 (01:41→17:04)
[2022-07-09] MEDS: PIPERACILLIN/TAZO 3.375 GM in NS 50 ML IV SCH ×4 (01:41→20:32)
--- NOTE | 2022-07-09 07:05 | NUR ---
Received report from OZZIE Higgins and assumed patient care.
[2022-07-09 07:10] LABS: BASOPHILS % (AUTO) 0.5 % (0.0-2.0); EOSINOPHILS # (AUTO) 0.2 K/uL (0.0-0.4); EOSINOPHILS % (AUTO) 6.8 % (0.0-4.0); HEMATOCRIT 25.7 % (36-48); HEMOGLOBIN 8.2 g/dL (12.0-16.0); LYMPHOCYTES # (AUTO) 0.6 K/uL (1.0-5.5); MEAN CORPUSCULAR HEMOGLOBIN 21 pg (27-31); MEAN CORPUSCULAR HGB CONC 32 % (32-36); MEAN CORPUSCULAR VOLUME 65 fL (79.0-98.0); MONOCYTES # (AUTO) 0.3 K/uL (0.0-1.0); NEUTROPHILS # (AUTO) 1.6 K/uL (1.8-7.7); NEUTROPHILS % (AUTO) 58.7 % (40.0-70.0); PLATELET COUNT (AUTO) 120 K/uL (130-430); RED BLOOD CELL COUNT(AUTO) 3.92 MIL/uL (4.2-6.2); RED CELL DISTRIBUTION WIDTH 21.5 % (9.0-15.0); WHITE BLOOD COUNT (AUTO) 2.7 K/uL (4.8-10.8)
[2022-07-09 07:16] LABS: CALCIUM 8.3 mg/dL (8.4-11.0); CREATININE 0.2 mg/dL (0.55-1.30)
[2022-07-09] MEDS: FERROUS SULFATE 300 MG/5 ML UDC GT SCH (08:06)
[2022-07-09] MEDS: BALSAM PERU/CASTOR OIL 56.7 GM OINT...G. TP SCH (08:06)
[2022-07-09] MEDS: ASCORBIC ACID 500 MG TABLET GT SCH (08:06)
[2022-07-09] MEDS: GABAPENTIN 300 MG CAPSULE GT SCH ×2 (08:06→22:05)
[2022-07-09] MEDS: LevETIRAcetam 500 MG/5 ML UDC ORAL LIQUID GT SCH ×2 (08:06→22:05)
[2022-07-09] MEDS: METOPROLOL TARTRATE 25 MG TABLET GT SCH ×2 (08:07→22:12)
[2022-07-09] MEDS: APIXABAN 2.5 MG TABLET GT SCH ×2 (08:07→22:04)
[2022-07-09] MEDS: roPINIRole HCL 0.25 MG ( REQUIP )TABLET GT SCH (08:07)
[2022-07-09] MEDS: POTASSIUM CHLORIDE 20 MEQ TAB.PRT.SR PO PRN ×2 (08:10→22:05)
[2022-07-09] MEDS ORDERED: BALSAM PERU/CASTOR OIL 56.7 GM OINT...G. TP SCH (09:00)
--- NOTE | 2022-07-09 09:00 | NUR ---
Provided patient's AM medications (please see EMAR for further details), patient was able to tolerate the big turn, oral care, and had no bowel movement as of the moment. Call light is within reach, and TV is currently on with music therapy, no additional complications noted at the moment and will reinforce if needed throughout the shift.
--- NOTE | 2022-07-09 10:28 | NUR ---
Dr. Ellis rounded at bedside, MD is aware of pending for downgrade orders and will inform Dr. March for further instruction. No additional orders noted at the moment, will reinforce if needed throughout the shift.
--- NOTE | 2022-07-09 11:00 | NUR ---
Paged Dr. March for evaluation on the possible downgrade orders for patient, no answer noted at the moment and will call back again for further details.
--- NOTE | 2022-07-09 13:39 | NUR ---
Dr. Morrissey called back (MD covering for Dr. March), per OK to downgrade patient to telemetry, no further orders noted at the moment and will reinforce if needed throughout the shift. rhinologist (Janny) is aware.
--- NOTE | 2022-07-09 15:55 | NUR ---
NAVIN Phoenix at bedside and provided bedside report. Transferring patient to room 134B, informed patient about the transfer but patient unable to comprehend teaching at the moment and will reinforce if needed throughout the shift. director public service (Janny) is aware, no complications noted at the moment.
--- NOTE | 2022-07-09 16:39 | NUR ---
Transferred patient over to room 134B, no complications noted during the transfer over and will reinforce if needed throughout the shift.
--- NOTE | 2022-07-09 16:40 | NUR ---
ADMIT NOTE Received pt from ICU to the floor with a diagnosis of acute respiratory failure. Admission process initiated. patient oriented to pain management, safety and call light-teach back done. Patient is currently on room air and oxygen saturion is 96%.
--- NOTE | 2022-07-09 19:35 | NUR ---
CLOSING NOTE Patient is in bed resting with eyes closed, no sign of distress or pain. Patient is supported with pillows and has been turned q2h. IV site is clean, dry, intact, and running prescribed fluids. Norton catheter is patent and draining yellow urine to gravity. Patient is on room air, breathing is nonlabored and even. All needs met at this time and safety checks made. Endorsed to shiftman nurse.
--- NOTE | 2022-07-09 19:45 | NUR ---
OPENING NOTE PT IS SEMI FOWLERS IN BED WITH EYES OPEN. NO APPARENT DISTRESS NOTED AT THIS TIME. BED IN LOWEST POSITION WITH FALL AND SAFETY PRECAUTIONS IN PLACE. PT IS AO X 0, NON RWANDAN SPEAKING. G TUBE FEEDING RUNNING ORDERED. IV FLUIDS RUNNING ORDERED. LUONG DRAINING TO GRAVITY
--- NOTE | 2022-07-09 20:34 | NUR ---
SPOKE WITH DR CALLED BREAKDOWN MAN DR, DR KHAN, FOR PTS HYPERNATREMIA DR ORDERED TO STOP NS @ 70ML/HR NEW ORDER FOR .45% NS @ 50ML/HR
[2022-07-09] MEDS: ZOLPIDEM TARTRATE 5 MG TABLET PO PRN (22:05)
[2022-07-09] MEDS: 0.45% NS 1,000 ML IV SCH (22:13)
[2022-07-10 01:53] VITALS: BP_SYST 139
[2022-07-10] MEDS: PIPERACILLIN/TAZO 3.375 GM in NS 50 ML IV SCH ×4 (02:34→20:31)
[2022-07-10 07:00] VITALS: BP_SYST 134
[2022-07-10 07:02] LABS: BASOPHILS % (AUTO) 0.6 % (0.0-2.0); EOSINOPHILS # (AUTO) 0.2 K/uL (0.0-0.4); EOSINOPHILS % (AUTO) 8.7 % (0.0-4.0); HEMATOCRIT 25.2 % (36-48); HEMOGLOBIN 8.2 g/dL (12.0-16.0); LYMPHOCYTES # (AUTO) 0.9 K/uL (1.0-5.5); LYMPHOCYTES % (AUTO) 38.1 % (20.5-51.5); MEAN CORPUSCULAR HEMOGLOBIN 21 pg (27-31); MEAN CORPUSCULAR HGB CONC 33 % (32-36); MEAN CORPUSCULAR VOLUME 64 fL (79.0-98.0); MONOCYTES # (AUTO) 0.4 K/uL (0.0-1.0); MONOCYTES % (AUTO) 17.8 % (1.7-9.3); NEUTROPHILS % (AUTO) 34.8 % (40.0-70.0); PLATELET COUNT (AUTO) 137 K/uL (130-430); RED BLOOD CELL COUNT(AUTO) 3.92 MIL/uL (4.2-6.2); WHITE BLOOD COUNT (AUTO) 2.4 K/uL (4.8-10.8)
--- NOTE | 2022-07-10 07:13 | NUR ---
CLOSING NOTE PT IS SEMI FOWLERS IN BED WITH EYES CLOSED. NO APPARENT DISTRESS NOTED AT THIS TIME. BED IN LOWEST POSITION WITH FALL AND SAFETY PRECAUTIONS IN PLACE. PT IS AO X 0, NON VATICAN CITIZEN SPEAKING. G TUBE FEEDING RUNNING ORDERED. IV FLUIDS RUNNING ORDERED. LUONG DRAINING TO GRAVITY. PT HAS BEEN PLACED ON A L.A.M.
--- NOTE | 2022-07-10 08:00 | NUR ---
OPENING NOTE REPORT RECEIVED FROM CORRECTION LIEUTENANT NURSE. PATIENT RECEIVED LYING IN BED, AWAKE, NO S/S OF ACUTE DISTRESS. BREATHING EVEN AND UNLABORED. HOB RAISED, RA IV SITE PATENT, NO SIGNS OF INFILTRATION OR INFECTION NOTED. SKIN WARM AND DRY TO TOUCH, NO S/S NOTED. CALL LIGHT WITH PATIENT. BED IS LOCKED AND AT LOWEST POSITION. WILL CONTINUE TO MONITOR.
[2022-07-10 08:03] LABS: NEUTROPHILS # (AUTO) 0.8 K/uL (1.8-7.7)
[2022-07-10 08:23] LABS: CALCIUM 8.6 mg/dL (8.4-11.0); CREATININE 0.26 mg/dL (0.55-1.30); POTASSIUM 3.5 mmol/L (3.5-5.1)
[2022-07-10] MEDS: FERROUS SULFATE 300 MG/5 ML UDC GT SCH (10:42)
[2022-07-10] MEDS: GABAPENTIN 300 MG CAPSULE GT SCH ×2 (10:44→21:02)
[2022-07-10] MEDS: ASCORBIC ACID 500 MG TABLET GT SCH (10:45)
[2022-07-10] MEDS: METOPROLOL TARTRATE 25 MG TABLET GT SCH ×2 (10:45→21:05)
[2022-07-10] MEDS: roPINIRole HCL 0.25 MG ( REQUIP )TABLET GT SCH (10:50)
[2022-07-10] MEDS: APIXABAN 2.5 MG TABLET GT SCH ×2 (10:50→21:13)
[2022-07-10] MEDS: BALSAM PERU/CASTOR OIL 56.7 GM OINT...G. TP SCH (10:51)
[2022-07-10] MEDS: LevETIRAcetam 500 MG/5 ML UDC ORAL LIQUID GT SCH ×2 (11:02→21:02)
[2022-07-10] MEDS ORDERED: FLUCONAZOLE 200 MG TABLET (DIFLUCAN) PO ONE (13:00)
[2022-07-10 13:36] VITALS: BP_SYST 145
--- NOTE | 2022-07-10 15:12 | NUR ---
NURSES NOTES RECEIVED ORDER FROM DIETITIANVIMAL 1.5@45, FREE H20 FLUSH 150ML@6H WILL CARRY OUT.
--- NOTE | 2022-07-10 15:33 | NUR ---
Dietitian Recommendations * Jevity 1.5 at 45 ml/hr (goal rate), Shaun BID, Free Water Flush: 150 ml Q6h via GT Provides: 1800 kcal/day, 74 gm protein/day, and 1421 ml free water/day Meets: 89% of upper end of estimated caloric needs, 101% of lower end of estimated protein needs, and 84% of lower end of estimated fluid needs LP, MS, RD Please refer to Nutrition Assessment for details. Addendum: 07/10/22 at [address] Amended: Links added.
[2022-07-10 16:00] VITALS: BP_SYST 138
[2022-07-10] MEDS ORDERED: FLUCONAZOLE 200 mg/ NS 100 ML IV SCH (16:30)
[2022-07-10] MEDS: 0.45% NS 1,000 ML IV SCH (18:13)
--- NOTE | 2022-07-10 19:19 | NUR ---
SHIFT REPORT REPORT GIVEN TO NIGHTSHIFT NURSE CHART CHECK DONE SBAR GIVEN YES PATIENT ENDORSED FOR CONTINUATION OF CARE ALL QUESTION ANSWERED.
--- NOTE | 2022-07-10 19:40 | NUR ---
OPENING NOTE PT IS SEMI FOWLERS IN BED WITH EYES OPEN. NO APPARENT DISTRESS NOTED AT THIS TIME. BED IN LOWEST POSITION WITH FALL AND SAFETY PRECAUTIONS IN PLACE. PT IS AO X 0, NON TRINIDADIAN SPEAKING. G TUBE FEEDING RUNNING ORDERED. IV FLUIDS RUNNING ORDERED. LUONG DRAINING TO GRAVITY
[2022-07-10 20:00] VITALS: BP_SYST 141
[2022-07-10] MEDS: ZOLPIDEM TARTRATE 5 MG TABLET PO PRN (21:02)
[2022-07-11 01:26] VITALS: BP_SYST 137
[2022-07-11] MEDS: PIPERACILLIN/TAZO 3.375 GM in NS 50 ML IV SCH (01:32)
[2022-07-11 06:29] LABS: BASOPHILS % (AUTO) 0.6 % (0.0-2.0); EOSINOPHILS # (AUTO) 0.2 K/uL (0.0-0.4); EOSINOPHILS % (AUTO) 8.3 % (0.0-4.0); HEMATOCRIT 24.8 % (36-48); HEMOGLOBIN 8.1 g/dL (12.0-16.0); LYMPHOCYTES # (AUTO) 0.7 K/uL (1.0-5.5); LYMPHOCYTES % (AUTO) 36.1 % (20.5-51.5); MEAN CORPUSCULAR HEMOGLOBIN 21 pg (27-31); MEAN CORPUSCULAR HGB CONC 33 % (32-36); MEAN CORPUSCULAR VOLUME 65 fL (79.0-98.0); MONOCYTES # (AUTO) 0.4 K/uL (0.0-1.0); MONOCYTES % (AUTO) 18.7 % (1.7-9.3); NEUTROPHILS % (AUTO) 36.3 % (40.0-70.0); PLATELET COUNT (AUTO) 146 K/uL (130-430); RED BLOOD CELL COUNT(AUTO) 3.83 MIL/uL (4.2-6.2); RED CELL DISTRIBUTION WIDTH 20.6 % (9.0-15.0)
[2022-07-11 07:17] LABS: NEUTROPHILS # (AUTO) 0.7 K/uL (1.8-7.7)
[2022-07-11 07:32] LABS: CALCIUM 8.2 mg/dL (8.4-11.0); CREATININE 0.28 mg/dL (0.55-1.30)
[2022-07-11 08:00] VITALS: BP_SYST 135; BP_SYST 137
--- NOTE | 2022-07-11 08:47 | NUR ---
Opening note: Report received from OZZIE Garcia for continuity of care. Patient stable condition. No distress noted. Will continue to monitor.
[2022-07-11] MEDS ORDERED: FLUCONAZOLE 200 MG TABLET (DIFLUCAN) PO SCH (09:00)
[2022-07-11] MEDS ORDERED: IV Zosyn IV (10:20)
[2022-07-11] MEDS ORDERED: [UNRECOGNIZED DRUG - OTHER] IV (10:20)
[2022-07-11] MEDS: LevETIRAcetam 500 MG/5 ML UDC ORAL LIQUID GT SCH (10:50)
[2022-07-11] MEDS: FERROUS SULFATE 300 MG/5 ML UDC GT SCH (10:52)
[2022-07-11] MEDS: GABAPENTIN 300 MG CAPSULE GT SCH (10:53)
[2022-07-11] MEDS: roPINIRole HCL 0.25 MG ( REQUIP )TABLET GT SCH (10:53)
[2022-07-11] MEDS: METOPROLOL TARTRATE 25 MG TABLET GT SCH (10:54)
[2022-07-11] MEDS: ASCORBIC ACID 500 MG TABLET GT SCH (10:54)
[2022-07-11] MEDS: BALSAM PERU/CASTOR OIL 56.7 GM OINT...G. TP SCH (10:55)
--- NOTE | 2022-07-11 11:18 | NUR ---
Discharge Planning: DCP faxed pot referral to JUAN Johnson to follow up. Addendum: 07/11/22 at 1215 by Margot Ryan DP DCP arranged transport wit [facility] [phone] BLS to [facility] [phone] Rm 50B DCP made CM and nurse is aware. Patient packet taken to nurse station. Addendum: 07/11/22 at 1354 by Margot Ryan DP Disposition 03
[2022-07-11] MEDS: APIXABAN 2.5 MG TABLET GT SCH (11:19)
[2022-07-11] MEDS ORDERED: CEFEPIME 0.5 GM in D5W 50 ML IV SCH (12:00)
[2022-07-11] MEDS: 0.45% NS 1,000 ML IV SCH (13:41)
--- NOTE | 2022-07-11 14:45 | NUR ---
CLOSING NOTE PT IS SEMI FOWLERS IN BED WITH EYES CLOSED. NO APPARENT DISTRESS NOTED AT THIS TIME. BED IN LOWEST POSITION WITH FALL AND SAFETY PRECAUTIONS IN PLACE. PT IS AO X 0, NON BELARUSIAN SPEAKING. G TUBE FEEDING RUNNING ORDERED. IV FLUIDS RUNNING ORDERED. LUONG DRAINING TO GRAVITY.
[2022-07-11 16:00] VITALS: BP_SYST 115
[2022-07-11 17:12] VITALS: BP_SYST 129
--- NOTE | 2022-07-11 17:42 | NUR ---
PATIENT STABLE FOR DISCHARGE. REPORT CALLED TO LOU AT [facility]. [facility] AT [facility]ED[facility]IDE TO TRANSFER PATIENT BACK TO SNF. REPORT GIVEN TO AMBULANCE TRANSPORT. PATIENT DISCHARGE VIA GURNEY TO [facility]. Fatoumata IBRAHIM RN.
== END 2022-07-11 17:49 | DRG 871 ==
LOC: SED 22:05 → SIC 07-08 02:12 → STU 07-09 15:43 → SMU 07-10 11:01 → STU 07-10 11:05
PROVIDERS: ADMIT General Practice; ATTEND General Practice
PROC: 5A09357 Assistance with Respiratory Ventilation, Less than 24 Consecutive Hours, Continuous Positive Airway Pressure (ICD-10-PCS; principal; 2022-07-08)
DX: A41.9 Sepsis, unspecified organism (principal); G93.41 Metabolic encephalopathy; J69.0 Pneumonitis due to inhalation of food and vomit; J96.21 Acute and chronic respiratory failure with hypoxia; N39.0 Urinary tract infection, site not specified; E87.0 Hyperosmolality and hypernatremia; E44.0 Moderate protein-calorie malnutrition; D63.8 Anemia in other chronic diseases classified elsewhere; G40.909 Epilepsy, unspecified, not intractable, without status epilepticus; E87.6 Hypokalemia; Z20.822 Contact with and (suspected) exposure to COVID-19; R13.10 Dysphagia, unspecified; I48.91 Unspecified atrial fibrillation; Z79.899 Other long term (current) drug therapy; Z87.01 Personal history of pneumonia (recurrent); Z68.25 Body mass index [BMI] 25.0-25.9, adult; Z86.73 Personal history of transient ischemic attack (TIA), and cerebral infarction without residual deficits; Z86.16 Personal history of COVID-19; Z93.1 Gastrostomy status; Z74.01 Bed confinement status
CPT/HCPCS: 36415; 71045; 71275; 76376; 80048; 80053; 81000; 83036; 83605; 83735; 84484; 85025; 87040; 87081; 87086; 93005; 94640; 94660; 96361; 96365; 96375; 99291; G0378; J0692; J1450; J1956; J2543; J3480; J3490; J7030; J7060; J7613; Q9967